=== PATIENT | female | born 1945 | race Caucasian/White ===

== ENCOUNTER → 2016-10-05 | Outpatient (CLI) | payer OTHER ==
[~2016-10-05] VITALS: Ht 149.9 cm; Wt 112.4 kg
[~2016-10-05] MED LIST: ADULT LOW DOSE81 MG PO; ALEVE220 M1 PO; AMOXICILLIN 50500 MG; APAP500 PO; BENICAR40 MG PO; BUSPIRONE HCL10 MG PO; BUTRANS1 EAC1 TD; BUTRANS1 EACH TD; CALCIUM 500+D1 EAC2 PO; CELEBREX 200 M200 MG PO; CYMBALTA60 MG PO; FELODIPINE 5 MG5 M1 PO; GLUCOPHAGE1000 MG PO; GLUCOPHAGE500 MG PO; GLYBURIDE 2.52.5 M1 PO; HYDROCHLOROTHIA25 M1 PO; KETOPROFEN; LEXAPRO 10 MG T10 M1 PO; LEXAPRO20 MG PO; MINOCIN100 MG PO; MINOCYCLINE HC100 M2 PO; MIRALAX17 GM PO; MULTIVITAMINS PO; MURO-128 OPHTH3.5 G1 OPHTHALMIC; MYRBETRIQ50 MG PO; NYSTATIN TOP; ONDANSETRON HCL4 M2 PO; PRILOSEC 20 MG20 MG PO; REFRESH OPTIVE10 ML OPHTHALMIC; SENNA-DOCUSATE1 EAC1 PO; TOPICAL CREAM; TRAMADOL 50 MG50 MG PO; VESICARE 5 MG TA5 MG PO; VITAMIN D3 PO; VITAMINC500 PO; ZOCOR40 MG PO; ZOLOFT100 MG PO
--- NOTE | ~2016-10-05 | HPC ---
[facility] [place] [address] PAIN MANAGEMENT CONSULTATION Name: PHILIPP MOCTEZUMA Room #: REG XIMENA Srinath.#: [id number] Admission: 10/05/16 Attend Phys: Fernando Barker MD Discharge: Date of : 49 Report #: [id number] THIS REPORT FOR: //name// CC: Gina Barker DATE OF SERVICE: 10/05/2016 Followup visit for chronic knee pain. The patient returns to pain clinic today for renewal of medication under terms of our agreement. She says her knee pain is worsening, she scores it as a 7 with all weightbearing activities and walking. Pain began just above the knee and involves the thigh, the knee joint and into the calf. She is morbidly obese and all weightbearing definitely increases pain. Pain is exacerbated by walking and weather changes. She is grateful for the medication, which provides quite a bit of relief. She is under more stress. This is not the first time she has come to our clinic describing familial family problems, rather her daughter apparently has MS and is having changes with cognitive issues. We went into long discussion today about the stressful situations occurring around her grandchildren and her daughter, this clearly effects her mood, her mobility, her ability to get out and her chronic pain. I offered support and prays. PHYSICAL EXAMINATION: She is morbidly obese with a BMI of 50. Her blood pressure is 149/60, heart rate 67. Her pain score today is a 7 when she stands, at rest it is not too bad. She is in short pants today and she also is on sandals. Examination of the knee reveals diffuse tenderness above and below the joint itself where she has a fair amount of swelling and tenderness. Crepitus is noted with movements and flexion and extension. IMPRESSION: 1. Severe chronic osteoarthritis, status post knee replacement on the left. Bilateral knee pain. 2. Morbid obesity. 3. History of depression, anxiety. 4. Management of high risk medication. 5. Probable complex regional pain syndrome, left lower extremity. PLAN: With chronic pain, I will provide ongoing palliative medications with Butrans 10 mg every 7 days and Celebrex 200 mg 1 tablet daily. All side effects of medication were reviewed with her once more and the importance of safeguarding even her patch medications and the CDC guidelines was reviewed. [address] [address] PAIN MANAGEMENT CONSULTATION Name: PHILIPP MOCTEZUMA Room #: REG [facility] Sudhir#: [id number] Admission: 10/05/16 Attend Phys: Fernando Barker MD Discharge: Date of : 49 Report #: [id number] Followup visit planned in 3 months. By: [id number] Fernando Barker MD /nt
[2016-10-05 13:02] VITALS: BP 149/60
== END ==
LOC: PAIN 07:33
DX: M17.0 Bilateral primary osteoarthritis of knee (principal); Z96.652 Presence of left artificial knee joint; E66.01 Morbid (severe) obesity due to excess calories; F41.8 Other specified anxiety disorders; G89.4 Chronic pain syndrome; I10 Essential (primary) hypertension; G47.30 Sleep apnea, unspecified

== ENCOUNTER → 2017-06-28 | Outpatient (CLI) | payer OTHER ==
[~2017-06-28] MED LIST changes: +FISH OIL 1,001000 M2 PO
--- NOTE | ~2017-06-28 | HPC ---
[facility] [address] [place] [address] PAIN MANAGEMENT CONSULTATION Name: PHILIPP MOCTEZUMA Room #: REG XIMENA Srinath.#: [id number] Admission: 06/28/17 Attend Phys: Fernando Barker MD Discharge: Date of : 49 Report #: [id number] THIS REPORT FOR: //name// CC: Gina Barker DATE OF SERVICE: 06/28/2017 Followup visit for severe pain, right knee osteoarthritis, depression and chronic stress. I saw the patient today from roughly 25-30 minutes in consultation. She was late for her appointment. It is difficult for her to get out of the house. She has a great deal of difficulty with mobility due to the severe pain in her right knee, which is terribly osteoarthritic. She is not a candidate for replacement. She is here today for medication and has had some relief with the use of buprenorphine patches and Celebrex with a few side effects. She sees a psychiatrist and also weekly counselor who have been helpful for her severe depression. Much of this is situational related to her disease and also to her worry and empathy for her daughter who has MS. She does not get out very much. She does have some gratitude and is grateful that she can still drive, but more and more she finds that life is depressing. We discussed that in the past she has felt suicidal, but no longer feels that way. She is trying to make her best through her current situation. Her pain is nearly all in her knee, although she has back pain and other aches and pains. It is worse with standing, weightbearing and she has to use a walker. She tries not to use a wheelchair. Pain intensity is 8 without the patch, 6 with it. Pain clinic assessment PQRS: She does have a history of osteoarthritis of the knees. She is morbidly obese. Her BMI is in excess of 45. Weight loss is challenging due to her inability to be mobile. We have discussed wellness behaviors and she was given information on [facility]. Vital signs are blood pressure 163/63, heart rate 65, respirations 16, O2 sat is 97%. Marked swelling, deformity with decreased range of motion is noted in the right knee. She is a fall risk due to her use of a walker, but is gratefully not following in the last 3 months. She is on no blood thinners. She is under treatment for hypertension and is on an opioid signed contract. A risk tool has been performed as well as functional assessment tool. She is at low risk for addiction, but she is at some risk of medication abuse due to her depression. I felt that was one reason, a patch would be beneficial. IMPRESSION: 1. Chronic intractable right knee pain with severe osteoarthritis. 2. Complex regional pain syndrome, left lower extremity. 3. Depression and anxiety with improvement. [facility] [address] [place] [address] PAIN MANAGEMENT CONSULTATION Name: PHILIPP MOCTEZUMA Room #: REG CLEvelia Peguero#: [id number] Admission: 06/28/17 Attend Phys: Fernando Barker MD Discharge: Date of : 49 Report #: [id number] 4. Morbid obesity. 5. Management of high risk medication. I have renewed her medication. She was counseled and given information on [facility] as well as some literature from our office about managing pain. Intent is for her to try and get out of the house at least once a week. She will practice the skills of gratitude discussed in the book, [facility] Guide to Stress-Free Living. We will be available to provide support where we can. <ELECTRONICALLY SIGNED> By: Fernando Barker MD 07/28/17 1640 [id number] [id number] Fernando Barker MD /nt
[2017-06-28 15:15] VITALS: BP 166/63
== END ==
LOC: PAIN 07:08
DX: M17.11 Unilateral primary osteoarthritis, right knee (principal); G90.522 Complex regional pain syndrome I of left lower limb; F32.9 Major depressive disorder, single episode, unspecified; F41.9 Anxiety disorder, unspecified; E66.01 Morbid (severe) obesity due to excess calories; Z79.899 Other long term (current) drug therapy; Z68.42 Body mass index [BMI] 45.0-49.9, adult

== ENCOUNTER → 2017-09-02 | Outpatient (CLI) | payer OTHER ==
[~2017-09-02] VITALS: Ht 152.4 cm; Wt 111.1 kg
--- NOTE | ~2017-09-02 | HPC ---
[facility] [place] [address] PAIN MANAGEMENT CONSULTATION Name: PHILIPP MOCTEZUMA Room #: REG XIMENA Srinath.#: [id number] Admission: 09/02/17 Attend Phys: Fernando Barker MD Discharge: Date of : 49 Report #: [id number] THIS REPORT FOR: //name// CC: Gina Barker DATE OF SERVICE: 09/02/2017 Followup visit for chronic severe pain, osteoarthritis and depression. The patient returns to pain clinic today for renewal of her chronic pain medication. She was here for a short consultation and I renewed her Butrans 10 patches for 3 months as well as Celebrex 200. Although emotionally I think she is more stable and I have seen her in the past with less anger, frustration, and depression, she is sad about her daughter who is declining rapidly with multiple sclerosis living in an apartment now having lost her family and her job. This is her most pressing concern at this time. She focuses more on her daughter today than she does on her physical pain. Her right knee is as described previously severely arthritic, swollen with marked effusion. She is unable to receive surgical treatment for this. She has had pain in the leg consistent with complex regional pain syndrome, which I think is much improved following the injection treatments and ongoing medication. No additional changes are required at this time. Pain clinic PQRS assessment shows history of osteoarthritis, bilaterally of the knees, morbid obesity. BMI again today over 45. VITAL SIGNS: Blood pressure of 143/67, heart rate 61, respirations 18, O2 sats 99. Pain intensity 8-9/10. She has not fallen in the last 3 months, but would be considered a fall risk due to her severe arthritis and she uses a walker. She has an opioid agreement signed for the use of her Butrans patches. IMPRESSION: 1. Chronic right knee pain with osteoarthritis. 2. Complex regional pain syndrome, left lower extremity. 3. History of depression and anxiety. 4. Morbid obesity. 5. Management of high risk medication. [facility] [address] [place] [address] PAIN MANAGEMENT CONSULTATION Name: PHILIPP MOCTEZUMA Room #: REG [facility]#: [id number] Admission: 09/02/17 Attend Phys: Fernando Barker MD Discharge: Date of : 49 Report #: [id number] PLAN: I renewed her medications today under terms of our agreement. We will see her back in 3 months. <ELECTRONICALLY SIGNED> By: Fernando Barker MD 09/06/17 1408 1653 57 Fernando Barker MD /nt
[2017-09-02 13:21] VITALS: BP 143/67
== END ==
LOC: PAIN 06:16
DX: M17.11 Unilateral primary osteoarthritis, right knee (principal); G90.522 Complex regional pain syndrome I of left lower limb; F32.9 Major depressive disorder, single episode, unspecified; F41.9 Anxiety disorder, unspecified; E66.01 Morbid (severe) obesity due to excess calories; Z79.899 Other long term (current) drug therapy; Z68.42 Body mass index [BMI] 45.0-49.9, adult

== ENCOUNTER → 2018-01-17 | Outpatient (CLI) | payer OTHER ==
[~2018-01-17] VITALS: Ht 152.4 cm; Wt 104.0 kg
--- NOTE | ~2018-01-17 | HPC ---
[facility] [place] [address] PAIN MANAGEMENT CONSULTATION Name: PHILIPP MOCTEZUMA Room #: REG XIMENA MelgarElisabethNoel.#: [id number] Admission: 01/17/18 Attend Phys: Fernando Barker MD Discharge: Date of : 49 Report #: [id number] THIS REPORT FOR: //name// CC: Gina Barker DATE OF SERVICE: 01/17/2018 Followup visit for chronic left leg pain. Consideration of complex regional pain syndrome. The patient returns to pain clinic today for renewal of pain medication. She has been doing pretty well with Butrans patches and receiving about 50% pain relief. She has resigned a bit to her condition, although she is very limited due to the significant pain that she has in her left knee, thigh and hip. This has been more extensive. She has marked swelling of that leg, but no allodynia. She does have some trophic changes with difference in growth of hair and nails. This has suggested a possible complex regional pain syndrome. PQRS review demonstrates pleasant female today. She does not appear anxious. She is 5 feet tall with a BMI of 44.8. Her blood pressure 149/65, heart rate is 58, respirations 18 and O2 sat 97. She has a pain intensity of 6 with walking and she has a significant fall risk. She has not recently fallen and is careful in her movements. All of her medications were reviewed and reconciled. I provided for her the buprenorphine. She is on an antidepressant and anti- anxiolytic, which have been helpful for a history of chronic depression related to chronic pain. Physical exam continuation demonstrates tenderness across the low back. She has difficulty with standing. She walks with marked discomfort and antalgic features. Examination of the left leg reveals diffuse swelling throughout the leg. No allodynia. There is swelling of a marked degree around her left knee where she has had complications from knee replacement and revision. She has limited movement of the foot. Pulses are difficult to palpate. IMPRESSION: 1. Chronic right knee pain with osteoarthritis. 2. Complex regional pain syndrome, left lower extremity. 3. History of depression and anxiety. 4. Morbid obesity. 5. Management of high risk medications. I renewed her medications for her and provided with information about spinal [address] [address] PAIN MANAGEMENT CONSULTATION Name: PHILIPP MOCTEZUMA [facility] [id number] Admission: 01/17/18 Attend Phys: Fernando Barker MD Discharge: Date of : 49 Report #: [id number] cord stimulation. She may be a reasonable candidate for this going forward. I described to her in some detail. I spent about 25 minutes with her today to discuss these options and answer questions. We did check her prescriptions with the [place] [employer], [facility] program and everything is appropriate. She was given prescriptions for 4 months and I will pursue spinal cord stimulator with her discretion. She was given written literature. By: [id number] Fernando Barker MD /kelvin
[2018-01-17 15:10] VITALS: BP 149/65
== END ==
LOC: PAIN 07:01
DX: G90.522 Complex regional pain syndrome I of left lower limb (principal); M17.11 Unilateral primary osteoarthritis, right knee; E66.01 Morbid (severe) obesity due to excess calories; F41.9 Anxiety disorder, unspecified; F32.9 Major depressive disorder, single episode, unspecified; Z79.899 Other long term (current) drug therapy

== ENCOUNTER → 2018-04-14 | Outpatient (CLI) | payer OTHER ==
[~2018-04-14] VITALS: Ht 152.4 cm; Wt 102.5 kg
--- NOTE | ~2018-04-14 | HPC ---
[facility] [place] [address] PAIN MANAGEMENT CONSULTATION Name: PHILIPP MOCTEZUMA Room #: [facility] [id number] Admission: 04/14/18 Attend Phys: Kym De La Torre Discharge: Date of : 49 Report #: [id number] THIS REPORT FOR: //name// CC: Gina De La Torre DATE OF SERVICE: 04/14/2018 REASON FOR THE VISIT: This is a followup visit for her chronic left leg pain, left knee pain. HISTORY OF PRESENT ILLNESS: The patient returned to the pain clinic today for a refill of her pain medications for her Butrans patch. She tells me that she had been doing fairly well until about last week, when the weather changed significantly. She said she has pain of 8/10 in her left knee, left thigh, left hip, and occasionally some in her right knee in the past week. She says the weather changes have made it worse walking, activity, standing and stairs. She is in a wheelchair today and states that she can barely walk and her is not very helpful with helping her move very much. She tells me that she has been taking Tylenol 1000 mg twice a day and was wondering about an increase of this. She tells me she does not want an increase in her narcotics because she does not want to get confused by taking too much medicine. She tells me she does have some daytime sleepiness that feels that some of her depression. She does take an antidepressant on a daily basis. She tells me that she could sleep 15 hours a day, but she does only sleep 9 hours and gets up and tries to be as active as she can. She tells me that her constipation is taken care of with Senokot. ALLERGIES: TO MORPHINE, CODEINE, FENTANYL AND PROCAINE. MEDICATIONS: Current list of medications: Celebrex 200 mg daily, Butrans patch 10 mcg, Lexapro 40 mg daily, buspirone 10 mg twice a day, vitamin D3, Senokot, metformin 500 mg one in the morning and two at night, minocycline 100 mg daily, glyburide 2.5 mg daily, Tylenol Extra Strength 1000 mg twice a day, aspirin 81 mg, multivitamin, Plendil ER 500 mg at bedtime, Zocor 40 mg at bedtime, Benicar 40 mg at bedtime and Prilosec 20 mg daily. PQRS: 1. She has a history of osteoarthritis in her knees, lower back, thigh and hips. She denies rheumatoid arthritis. 2. Height is 5 feet, weight is 226 and BMI is 44. Vital signs 150/71, pulse 64, respirations 16 and oxygen saturation is 98%. 3. Her pain score is 8/10. 4. Fall risk. She denies dizziness, does need help walking and standing and has not fallen in the last [address] [address] PAIN MANAGEMENT CONSULTATION Name: PHILIPP MOCTEZUMA Room #: REG XIMENA Peguero#: [id number] Admission: 04/14/18 Attend Phys: Kym De La Torre Discharge: Date of : 49 Report #: [id number] 5. She has no blood thinners. 6. History of hypertension. Opioid therapy is greater than 6 weeks; therefore, an opioid signed contract is not on the chart, but we will sign that next time. It will be placed on there for her to fill up. Her risk assessment is low. Her functional assessment is 57 out of 70. 7. Her recreational drug use, she denies. She does not smoke and does not drink alcohol. We did check a [place] drug prescription monitoring program and she has filled her Butrans appropriately, with no aberrant behaviors. The patient tells me she safeguards her medications, keeps them locked very securely. PHYSICAL EXAMINATION: GENERAL: This is a well-developed, well-nourished, obese woman who appears her stated age. She is alert and orientated x 3. Affect is appropriate, though she tells me she is somewhat depressed. HEENT: Normocephalic, atraumatic. Extraocular muscles are intact. Mucous membranes are moist. Hearing is intact. NECK: No JVD or adenopathy. EXTREMITIES: Lower extremities, pain in her lower extremities, especially right knee very arthritic, swollen with marked effusion present. Decreased motor strength in the left, 3/2 in all muscle groups and 4/5 on her right leg in all muscle groups. The patient able to straight leg both legs bilaterally with some difficulty. DIAGNOSTIC IMPRESSION: Chronic bilateral knee pain with osteoarthritis; complex regional pain syndrome, left lower extremity; history of depression and anxiety; morbid obesity and management of high-risk medications. We reviewed the fact that opiate medications are being used to provide analgesia adequate to support activities of daily living, not attempting to achieve a specific pain score on the 0-10 Visual Analog Scale. The current opiate medications are providing sufficient analgesia to allow the patient to participate in activities of daily living. The patient is not exhibiting any aberrant behavior suggestive of drug diversion. The patient is not having any adverse reactions to medications. The patient is not suffering from daytime somnolence or mental acuity changes. The patient is managing opiate-induced constipation with appropriate [id number]-[id number] agents and dietary considerations. The patient was counseled on concern for caution with operating a motor vehicle while using opiate medications. A physical exam was performed and the patient's functional status was evaluated. All patients with back pain were advised against the bed rest greater than 4 days and were advised to return to normal activities. Pain score assessment was noted and the treatment plan was reviewed with the patient. All current medications, both prescribed and OTC were reviewed and reconciled on the [address] [address] PAIN MANAGEMENT CONSULTATION Name: PHILIPP MOCTEZUMA Room #: REG CLEvelia Peguero#: [id number] Admission: 04/14/18 Attend Phys: Kym De La Torre Discharge: Date of : 49 Report #: [id number] electronic medical record. Tobacco screening was accomplished and smoking cessation was advised when indicated. BMI was noted and diet/exercise modification was recommended for all patients following outside normal parameters. I reviewed with the patient today their responsibilities to safeguard prescription medications, reviewed their responsibility to utilize medications only as prescribed by the physician. They are to seek and receive pain medications only from 1 physician group ( [facility]). They are to use 1 pharmacy and keep the clinic informed if they change pharmacies. Their responsibilities include making followup visits in a timely fashion and to avoid abrupt discontinuation of medication usage. Their responsibilities further include bringing their medications (bottles from the pharmacy with residual pills) to the visit for possible confirmation of pill counts and the patient understands it is their responsibility to submit to random drug screens to ensure both that the medications prescribed are present, and that no other controlled substances are present. All prescriptions provided today were generated electronically. PLAN: 1. The patient is seen today for followup of her medications and here for renewal for her chronic pain medications of Butrans. She takes Butrans 10 mcg patches 1 patch every week and Celebrex 200 mg once a day. The patient does mail off these prescriptions to [facility] and is requesting them be faxed there. 2. We will refill these medications today. The patient does not need them until mid April, but it does take a while to get process through a mail-off pharmacy. 3. The patient discussed the fact that she was having increase in pain since the weather has changed. We did talk slightly about the CDC guidelines and morphine milliequivalents. The patient does not want to increase her narcotic use at this time, but was wondering if it is possible that she could take Tylenol Extra Strength 1000 mg 3 times a day. I instructed the patient that it was okay to do. I would not recommend doing it on a daily basis if she can get by with the lowest most effective dose, which she tells me is 2000 mg that she will do that and then days that she is hurting more so she will take an additional 2 pills in the middle of the afternoon. The patient thinks that this will help her function better. 4. The patient will be seen again in 3-month time frame myself and after that by Dr. Fernando Barker. The patient is agreeable with this plan of care. 5. The patient seen in collaboration today with Dr. Barker. <ELECTRONICALLY SIGNED> By: Kym De La Torre 04/15/18 0717 1520 [id number] Kym De La Torre /kelvin
[2018-04-14 14:24] VITALS: BP 150/71
== END ==
LOC: PAIN 06:54
DX: M25.562 Pain in left knee (principal); M25.552 Pain in left hip; M79.652 Pain in left thigh; M54.5 Low back pain; M25.551 Pain in right hip

== ENCOUNTER 2018-05-06 14:10 | Emergency (ER) | payer OTHER ==
[~2018-05-06] VITALS: Ht 152.4 cm; Wt 108.9 kg
[2018-05-06 15:47] VITALS: BP 174/76
== END 2018-05-06 15:48 | disposition home or self-care (01) ==
LOC: ER 14:10
DX: M79.605 Pain in left leg (principal); G89.29 Other chronic pain; E11.9 Type 2 diabetes mellitus without complications; M19.90 Unspecified osteoarthritis, unspecified site; I10 Essential (primary) hypertension; F32.9 Major depressive disorder, single episode, unspecified; E78.00 Pure hypercholesterolemia, unspecified; Z88.4 Allergy status to anesthetic agent; Z88.5 Allergy status to narcotic agent; Z96.653 Presence of artificial knee joint, bilateral

== ENCOUNTER → 2018-07-28 | Outpatient (CLI) | payer OTHER ==
--- NOTE | 2018-07-27 11:10 | NUR ---
4Pain Clinic Assessment: 1. History of Osteoarthritis: yes History of Rheumatoid Arthritis: Not Applicable 2. Height: ft. in. cm. Weight: lb. oz. kg. Patient's BMI: 3. Vital Signs: BP: Pulse: Resp: Temp: 02 Sat: ECG Mon: 4. Pain Intensity: 8 5. Fall Risk: Dizziness: Needs help standing or walking: Fallen in the last 3 months: Fall risk comments: 6. Patient on Blood Thinner: None 7. History of Hypertension: Y 8. Opioid Therapy greater than 6 weeks: Y Opiate Contract Signed: 9. Risk Assessment Tool Provided: LOW 10. Functional Assessment Tool: 57/70 11. Recreational Drug Use: Never Drug Type: Tobacco Use: Never Smoker Tobacco Type: Amount or Packs/day: How Many Years: Alcohol Use: No Frequency: Quant:
[~2018-07-28] VITALS: Ht 152.4 cm; Wt 115.6 kg
--- NOTE | ~2018-07-28 | HPC ---
[facility] [place] [address] PAIN MANAGEMENT CONSULTATION Name: PHILIPP MOCTEZUMA [facility] [id number] Admission: 07/28/18 ������������������ Attend Phys: Kym De La Torre Discharge: ������������������ Date of : 49 Report #: [id number] THIS REPORT FOR: //name// CC: Gina De La Torre DATE OF SERVICE: 07/28/2018 CHIEF COMPLAINT: Chronic left leg and knee pain. HISTORY OF PRESENT ILLNESS: The patient returns to pain clinic today for refill of her Butrans patch that she uses to control her left leg pain. She tells me that her knee has been very bad lately causing her increased pain that has been radiating from her knee up towards her hip. She tells me her pain score today is 8/10. It is a sharp, achy, throbbing pain, worse with the weather changing, walking and activity. She is in a wheelchair today. The medications are helpful, but sometimes she does have increasing pain. She continues on her Butrans and her Celebrex. She tells me that she did go to the Emergency Room. Since we have seen her last, she was very depressed and her pain had been getting worse. She did not receive any prescriptions from them for pain medications. ALLERGIES: MORPHINE, CODEINE, FENTANYL, AND NOVOCAIN. MEDICATIONS: Butrans patch 10 mcg every week, Lexapro 40 mg daily, buspirone 10 mg b.i.d., vitamin D3 daily, Senokot as needed, metformin 500 mg in the morning and 1000 at night, minocycline 100 mg daily, glyburide 2.5 mg daily, extra strength Tylenol as needed, aspirin 81 mg daily, multivitamin daily, Plendil ER 5 mg at bedtime, Celebrex 200 mg daily, Zocor 40 mg at bedtime, Benicar 40 mg at bedtime, Prilosec 40 mg daily. PQRS: 1. The patient has a history of osteoarthritis in her knees, lower back and hips. Denies rheumatoid arthritis. 2. Height is 5 feet, weight is 254, BMI is 49. 3. Vital signs: 153/57, pulse is 60, respirations 16, oxygen sat is 97%. 4. Pain score is 8/10. 5. Fall risk: Denies dizziness. She is in a wheelchair today and does need help walking. Otherwise, she has not fallen in the last 3 months. 6. The patient is not on any blood thinner. She does take medicine for hypertension. 7. Opioid therapy is greater than 6 weeks. Therefore, no opioid signed contract is on the chart. The patient's assessment tool is low. Her functional assessment is 57/70. 8. Recreational drug use, she denies. She is not a smoker and does not drink alcohol. We did check the prescription monitoring system[place] [id number] PAIN MANAGEMENT CONSULTATION Name: PHILIPP MOCTEZUMA Room #: REG XIMENA Peguero#: [id number] Admission: 07/28/18 ������������������ Attend Phys: Kym De La Torre Discharge: ������������������ Date of : 49 Report #: [id number] mail-off and does not show up on the prescription monitoring, but she is due for her meds today filling them in a timely fashion per our chart notes. We will check a buccal drug screen on this patient in her next visit. PHYSICAL EXAMINATION: GENERAL: This is a well-developed, well-nourished, obese woman, who appears her stated age. She is alert and orientated. Her affect is appropriate, though she had been in the Emergency Room recently due to increase in depression. HEENT: Normocephalic, atraumatic. Extraocular eye muscles are intact. Mucous membranes are moist. Hearing is intact. EXTREMITIES: Lower extremity strength is 4/5, judged to be in muscle groups. She does have swelling noted in her right knee, is very arthritic. She has decreased range of motion in her left leg. The patient is able to straight leg raise both legs bilaterally with difficulty, especially on the left. She walks with an antalgic gait. IMPRESSION: 1. Chronic bilateral knee pain with osteoarthritis. 2. Complex regional pain syndrome, left lower extremity. 3. Depression and anxiety. 4. Morbid obesity. 5. Management of high risk opioid medications. We reviewed the fact that opiate medications are being used to provide analgesia adequate to support activities of daily living, not attempting to achieve a specific pain score on the 0-10 Visual Analog Scale. The current opiate medications are providing sufficient analgesia to allow the patient to participate in activities of daily living. The patient is not exhibiting any aberrant behavior suggestive of drug diversion. The patient is not having any adverse reactions to medications. The patient is not suffering from daytime somnolence or mental acuity changes. The patient is managing opiate-induced constipation with appropriate lxyo-nke-upoewau agents and dietary considerations. The patient was counseled on concern for caution with operating a motor vehicle while using opiate medications. A physical exam was performed and the patient's functional status was evaluated. All patients with back pain were advised against the bed rest greater than 4 days and were advised to return to normal activities. Pain score assessment was noted and the treatment plan was reviewed with the patient. All current medications, both prescribed and OTC were reviewed and reconciled on the electronic medical record. Tobacco screening was accomplished and smoking cessation was advised when indicated. BMI was noted and diet/exercise modification was recommended for all patients following outside normal parameters. I reviewed with the patient today their responsibilities to [facility] [address] [place] [address] PAIN MANAGEMENT CONSULTATION Name: PHILIPP MOCTEZUMA Room #: REG Evelia Yo.#: [id number] Admission: 07/28/18 ������������������ Attend Phys: Kym De La Torre Discharge: ������������������ Date of : 49 Report #: [id number] prescription medications, reviewed their responsibility to utilize medications only as prescribed by the physician. They are to seek and receive pain medications only from 1 physician group ( [facility]). They are to use 1 pharmacy and keep the clinic informed if they change pharmacies. Their responsibilities include making followup visits in a timely fashion and to avoid abrupt discontinuation of medication usage. Their responsibilities further include bringing their medications (bottles from the pharmacy with residual pills) to the visit for possible confirmation of pill counts and the patient understands it is their responsibility to submit to random drug screens to ensure both that the medications prescribed are present, and that no other controlled substances are present. All prescriptions provided today were generated electronically. PLAN: 1. We discussed treatment options with the patient today. The patient tells me that she has had generally overall increasing aches and pains. She thinks this may be from the weather, but she has not been feeling as good in the past few months, wondering if she could double her some Celebrex. I explained to her that she is at the dose that is recommended per day. Occasionally, she may take an extra Celebrex, but no more than 2 times in the month if she able to do this. Otherwise, she needs to keep her Celebrex dose as she is at 200 mg per daily. No scripts needed to give to this patient today since she has plenty for her mail-off. Encouraged the patient to use Tylenol if she needs to for increase in pain. 2. Scripts given for Butrans 10 mcg patch, quantity 12 that we will fax to [facility] for refill. The patient tells me she does need to fill locally because she only has one patch left. Script was called in for 4 patches to the local pharmacy. I did encourage the patient that we cannot continue to give her 4 months every time that she comes. She needs to make her appointments in a timely fashion and I encouraged her to call for an appointment when she has one box of medications left and have an appointment within [address] will be able to get her prescriptions mailed from the mail-off pharmacy within a 2-month time period and we will be giving her 3 months of medications. The patient agrees with this. She will try to make note of when she has one box of medications left. 3. On next visit, we will check a fecal drug screen. Dr. Barker did see the patient today and collaborated with care. ��������������������������������������������� ���������������������������������������� By: ��������������������������������������������� [id number] Kym De La Torre /kelvin
[2018-07-28 09:54] VITALS: BP 153/57
--- NOTE | 2018-07-28 10:00 | NUR ---
Pain Clinic Assessment: 1. History of Osteoarthritis: yes History of Rheumatoid Arthritis: Not Applicable 2. Height: 5 ft. 0 in. 152.4 cm. Weight: 254.8 lb. oz. 115.577 kg. Patient's BMI: 49.8 3. Vital Signs: BP: 153/57 Pulse: 60 Resp: 16 Temp: 02 Sat: 97 ECG Mon: 4. Pain Intensity: 8 5. Fall Risk: Dizziness: N Needs help standing or walking: Y Fallen in the last 3 months: N Fall risk comments: 6. Patient on Blood Thinner: None 7. History of Hypertension: Y 8. Opioid Therapy greater than 6 weeks: Y Opiate Contract Signed: 9. Risk Assessment Tool Provided: LOW 10. Functional Assessment Tool: 11. Recreational Drug Use: Never Drug Type: Tobacco Use: Never Smoker Tobacco Type: Amount or Packs/day: How Many Years: Alcohol Use: No Frequency: Quant:
== END ==
LOC: PAIN 07:04
DX: M17.0 Bilateral primary osteoarthritis of knee (principal); G90.522 Complex regional pain syndrome I of left lower limb; F41.9 Anxiety disorder, unspecified; F32.9 Major depressive disorder, single episode, unspecified; E66.01 Morbid (severe) obesity due to excess calories; Z79.891 Long term (current) use of opiate analgesic; Z79.899 Other long term (current) drug therapy; Z68.42 Body mass index [BMI] 45.0-49.9, adult

== ENCOUNTER → 2018-11-10 | Outpatient (CLI) | payer OTHER ==
[~2018-11-10] VITALS: Ht 152.4 cm; Wt 113.4 kg
[~2018-11-10] MED LIST changes: +BUTRANS1 EAC1 TOP
[2018-11-10 13:30] VITALS: BP 129/56
--- NOTE | 2018-11-10 13:40 | NUR ---
Pain Clinic Assessment: 1. History of Osteoarthritis: yes History of Rheumatoid Arthritis: Not Applicable 2. Height: 5 ft. 0 in. 152.4 cm. Weight: 250.0 lb. oz. 113.400 kg. Patient's BMI: 48.8 3. Vital Signs: BP: 129/56 Pulse: 58 Resp: 16 Temp: 02 Sat: 99 ECG Mon: 4. Pain Intensity: 8 with walking 5. Fall Risk: Dizziness: N Needs help standing or walking: Y Fallen in the last 3 months: N Fall risk comments: 6. Patient on Blood Thinner: None 7. History of Hypertension: Y 8. Opioid Therapy greater than 6 weeks: Y Opiate Contract Signed: 9. Risk Assessment Tool Provided: LOW 10. Functional Assessment Tool: 57/ 11. Recreational Drug Use: Never Drug Type: Tobacco Use: Never Smoker Tobacco Type: Amount or Packs/day: How Many Years: Alcohol Use: No Frequency: Quant:
--- NOTE | 2018-11-11 11:32 | HPC ---
[facility] [address] [place] [address] PAIN MANAGEMENT CONSULTATION Name: PHILIPP MOCTEZUMA [facility] [id number] Admission: 11/10/18 ������������������ Attend Phys: Kym De La Torre Discharge: ������������������ Date of : 47 Report #: [id number] THIS REPORT FOR: //name// CC: Gina De La Torre DATE OF SERVICE: 11/10/2018 CHIEF COMPLAINT: Chronic knee pain. HISTORY OF PRESENT ILLNESS: This is a very pleasant 73-year-old female who returns to the pain clinic today telling me that she does not feel that her pain is well controlled as it used to be, wondering if she has any other options, whether it be increase in her Butrans patch, rotating to another medication or she did bring several alternatives for injections that she had researched with her sister regarding genicular nerve blocks and radiofrequency of her knee as well as a spinal cord stimulator that Dr. Fernando Barker has talked to her about before. The patient tells me that her pain score is 8/10 today with any walking or any activity including standing and stairs. Her medication does help some just not as much as it used to. She manages her constipation with medications and does not feel overly medicated with her medicines. ALLERGIES: MORPHINE, CODEINE, FENTANYL AND NOVOCAIN. CURRENT MEDICATION LIST: Buprenorphine 10 mcg patch, Celebrex 200 mg, Lexapro 40 mg, buspirone 10 mg b.i.d., vitamin D3, Senokot, metformin 500 mg b.i.d., minocycline 100 mg daily, glyburide 2.5 mg daily, Tylenol Extra Strength, aspirin, multivitamin, Plendil 5 mg at bedtime, Zocor 40 mg at bedtime, Benicar 40 mg at bedtime, Prilosec 20 mg daily. PQRS: 1. She has a history of osteoarthritis in her knees and her hips and her lower back. Denies any rheumatoid arthritis. 2. Height is 5 feet, weight is 250, and BMI is 48. 3. VITAL SIGNS: Blood pressure 129/56, pulse is 58, respirations 16, oxygen sat is 99. 4. Pain score is 8/10. 5. Fall risk. Denies dizziness. She does need help walking and she is in a wheelchair today and has not fallen in the last 3 months. 6. The patient is not on any blood thinners, does take medicine for hypertension. 7. Opioid therapy is greater than 6 weeks; therefore, an opioid signed contract is on the chart. Her risk assessment tool is low. Functional assessment is 57/70. 8. Recreational drug use, she denies. She is not a smoker and does not drink alcohol. [address] [address] PAIN MANAGEMENT CONSULTATION Name: PHILIPP MOCTEZUMA Room #: REG CLI Sudhir#: [id number] Admission: 11/10/18 ������������������ Attend Phys: Kym De La Torre Discharge: ������������������ Date of : 49 Report #: [id number] We did check the prescription monitoring system. The patient is due for her mail-off prescription. She keeps her medicines locked up and safeguarded. PHYSICAL EXAMINATION: GENERAL: This is a well-developed, well-nourished, obese female who appears her stated age. She is alert and orientated. Her affect is appropriate. HEENT: Normocephalic, atraumatic. Extraocular eye muscles are intact. Mucous membranes are moist. EXTREMITIES: Lower extremity strength judged to be 4/5 in all major muscle groups. She has significant swelling in her right knee, which is very arthritic with a well-healed scar. Her left knee is very swollen with tenderness around the patella. She is able to move her leg with active range of motion, but is very painful. She walks with an antalgic gait. IMPRESSION: 1. Chronic bilateral knee pain with osteoarthritis. 2. Complex regional pain syndrome, left lower extremity. 3. Depression and anxiety. 4. Morbid obesity. 5. Management of high risk medications under terms of written opioid agreement. We reviewed the fact that opiate medications are being used to provide analgesia adequate to support activities of daily living, not attempting to achieve a specific pain score on the 0-10 Visual Analog Scale. The current opiate medications are providing sufficient analgesia to allow the patient to participate in activities of daily living. The patient is not exhibiting any aberrant behavior suggestive of drug diversion. The patient is not having any adverse reactions to medications. The patient is not suffering from daytime somnolence or mental acuity changes. The patient is managing opiate-induced constipation with appropriate yyth-zfo-ogktauv agents and dietary considerations. The patient was counseled on concern for caution with operating a motor vehicle while using opiate medications. A physical exam was performed and the patient's functional status was evaluated. All patients with back pain were advised against the bed rest greater than 4 days and were advised to return to normal activities. Pain score assessment was noted and the treatment plan was reviewed with the patient. All current medications, both prescribed and OTC were reviewed and reconciled on the electronic medical record. Tobacco screening was accomplished and smoking cessation was advised when indicated. BMI was noted and diet/exercise modification was recommended for all patients following outside normal parameters. I reviewed with the patient today their responsibilities to safeguard prescription medications, reviewed their responsibility to utilize medications [address] [address] PAIN MANAGEMENT CONSULTATION Name: PHILIPP MOCTEZUMA Room #: REG [facility].#: [id number] Admission: 11/10/18 ������������������ Attend Phys: Kym De La Torre Discharge: ������������������ Date of : 49 Report #: [id number] only as prescribed by the physician. They are to seek and receive pain medications only from 1 physician group ( [facility]). They are to use 1 pharmacy and keep the clinic informed if they change pharmacies. Their responsibilities include making followup visits in a timely fashion and to avoid abrupt discontinuation of medication usage. Their responsibilities further include bringing their medications (bottles from the pharmacy with residual pills) to the visit for possible confirmation of pill counts and the patient understands it is their responsibility to submit to random drug screens to ensure both that the medications prescribed are present, and that no other controlled substances are present. All prescriptions provided today were generated electronically. PLAN: 1. We discussed treatment options with the patient today. The patient has brought a brochure with her today about nerve blocks for her knee and radiofrequency burning of her knee. I explained to her that Dr. Barker does not do those procedures. His previous partner did, but he has since left the practice. Dr. Fernando Barker gave me some information on cool RF that he thinks might be beneficial for the patient that we are not aware of a specific doctor in [facility] that does this procedure. We instructed the patient to call the company and see or call various pain clinics in [facility] or orthopedic surgeons. She will make some phone calls and call us with the names with information she has discovered and to make sure that we think that doctor is appropriate for her. 2. We did discuss spinal cord stimulator, which Dr. Barker had discussed with her in the past. We talked about pros and cons and the actual procedure in a significant length of time. The patient at this point thinks she would like to try injections of her knee to decrease some of her pain. 3. We did talk about increasing Butrans patch up to 15 mcg. The patient tells me she had tried to do that in the past, but felt overmedicated and had significant issues. She thinks currently right now, she will stay at her 10. She is not interested in trying to take an oral pill. She feels like she takes enough oral medications that she likes using the patch for pain control. Script sent to [facility] for 3-month supply of her Butrans 10 mcg patch. 4. The patient does not need Celebrex at this time, though she continues to take that on a daily basis. 5. I discussed this case with Dr. Fernando Barker who collaborated care today. The patient will return in 3 months' time period and talk to us via phone calls for physician referrals. ��������������������������������������������� <ELECTRONICALLY SIGNED> ���������������������������������������� By: Kym De La Torre ��������������������������������������������� 11/11/18 [id number] Kym De La Torre /nt
== END ==
LOC: PAIN 06:51
DX: M17.0 Bilateral primary osteoarthritis of knee (principal); E66.01 Morbid (severe) obesity due to excess calories; F32.9 Major depressive disorder, single episode, unspecified; F41.9 Anxiety disorder, unspecified

== ENCOUNTER → 2019-01-12 | Outpatient (CLI) | payer OTHER ==
[~2019-01-12] VITALS: Ht 152.4 cm; Wt 112.0 kg
--- NOTE | ~2019-01-12 | HPC ---
[facility] [place] [address] [place] [address] PAIN MANAGEMENT CONSULTATION Name: PHILIPP MOCTEZUMA Room #: REG XIMENA Srinath.#: [id number] Admission: 01/12/19 Attend Phys: Fernando Barker MD Discharge: Date of : 49 Report #: [id number] THIS REPORT FOR: //name// CC: Gina Barker DATE OF SERVICE: 01/12/2019 Followup visit for chronic left knee pain. The patient returns to pain clinic for followup for medication management. I provide her with Butrans patches. She also received Celebrex which has been somewhat helpful in managing her pain. We had some discussion today about cooled radiofrequency. I think that she would be a difficult case due to the significant structural abnormalities that exist within her knee joint. PQRS REVIEW: 1. History of osteoarthritis, diffuse, particularly involving the knees. 2. BMI of 48.2. Counseling regarding weight loss. 3. Blood pressure 141/66, heart rate 57, respirations 16. 4. Pain intensity 8/10. 5. She is a fall risk but has not fallen in the last 3 months. She needs help standing and walking. 6. She is on no blood thinners. 7. History of hypertension, which is currently under treatment. All of her medications were reviewed and reconciled from the electronic medical record and are noted there. 8. She is on an opioid agreement and we reviewed the important aspects of that. She is grateful for the pain relief that her pain medications provide and improvement in her day-to-day activities. She denies significant side effects. She carefully safeguards all medication. 9. She is at low risk for addiction as scored by the opioid risk tool. 10. Functional assessment score is 57 suggesting high impact of her pain. 11. She denies use of tobacco and alcohol. PHYSICAL EXAMINATION: VITAL SIGNS: As noted. GENERAL: She is pleasant, alert and oriented, without signs of depression or anxiety. CHEST: Examination of the chest is clear. CARDIAC: Rhythm is regular. EXTREMITIES: Examination of the left leg reveals edematous lower extremity. Midline scar over the knee. Localized tenderness and significant restrictions in range of motion in flexion. There is tenderness along the lateral thigh and [facility] [address] [place] [address] PAIN MANAGEMENT CONSULTATION Name: PHILIPP MOCTEZUMA Room #: REG [facility].#: [id number] Admission: 01/12/19 Attend Phys: Fernando Barker MD Discharge: Date of : 49 Report #: [id number] also down into the calf. There is some discoloration and bruising. IMPRESSION: 1. Chronic intractable pain. 2. Severe osteoarthritis. 3. Complex regional pain syndrome, left lower extremity. 4. Depression and anxiety, improved. 5. Morbid obesity. 6. Management of opioid medications under terms of written opioid agreement. I renewed her Butrans 10 mg and Celebrex 200 mg for the next 3 months. Follow up as needed. By: [id number] MD daria Amado
[2019-01-12 11:51] VITALS: BP 141/66
--- NOTE | 2019-01-12 12:03 | NUR ---
Pain Clinic Assessment: 1. History of Osteoarthritis: yes History of Rheumatoid Arthritis: Not Applicable 2. Height: 5 ft. 0 in. 152.4 cm. Weight: 247.0 lb. oz. 112.039 kg. Patient's BMI: 48.2 3. Vital Signs: BP: 141/66 Pulse: 57 Resp: 16 Temp: 02 Sat: 97 ECG Mon: 4. Pain Intensity: 8 5. Fall Risk: Dizziness: N Needs help standing or walking: Y Fallen in the last 3 months: N Fall risk comments: 6. Patient on Blood Thinner: None 7. History of Hypertension: Y 8. Opioid Therapy greater than 6 weeks: Y Opiate Contract Signed: 9. Risk Assessment Tool Provided: LOW 10. Functional Assessment Tool: 11. Recreational Drug Use: Never Drug Type: Tobacco Use: Never Smoker Tobacco Type: Amount or Packs/day: How Many Years: Alcohol Use: No Frequency: Quant:
== END ==
LOC: PAIN 06:50
DX: M17.12 Unilateral primary osteoarthritis, left knee (principal); G90.522 Complex regional pain syndrome I of left lower limb; E66.01 Morbid (severe) obesity due to excess calories; F32.9 Major depressive disorder, single episode, unspecified; F41.9 Anxiety disorder, unspecified; Z79.891 Long term (current) use of opiate analgesic

== ENCOUNTER → 2019-05-15 | Outpatient (CLI) | payer OTHER ==
[~2019-05-15] VITALS: Ht 152.4 cm; Wt 111.1 kg
[~2019-05-15] MED LIST changes: +AUGMENTIN 500-1 EACH PO; +BUTRANS1 EAC1 TRANSDERM
[2019-05-15 12:44] VITALS: BP 130/47
--- NOTE | 2019-05-15 12:52 | NUR ---
Pain Clinic Assessment: 1. History of Osteoarthritis: yes History of Rheumatoid Arthritis: Not Applicable 2. Height: 5 ft. 0 in. 152.4 cm. Weight: 245.0 lb. oz. 111.132 kg. Patient's BMI: 47.8 3. Vital Signs: BP: 130/47 Pulse: 71 Resp: 20 Temp: 02 Sat: 95 ECG Mon: 4. Pain Intensity: 7-8 5. Fall Risk: Dizziness: N Needs help standing or walking: N Fallen in the last 3 months: N Fall risk comments: 6. Patient on Blood Thinner: None 7. History of Hypertension: Y 8. Opioid Therapy greater than 6 weeks: Y Opiate Contract Signed: 9. Risk Assessment Tool Provided: LOW 10. Functional Assessment Tool: 57/ 11. Recreational Drug Use: Never Drug Type: Tobacco Use: Never Smoker Tobacco Type: Amount or Packs/day: How Many Years: Alcohol Use: No Frequency: Quant:
--- NOTE | 2019-05-16 08:06 | HPC ---
[facility] [place] [address] PAIN MANAGEMENT CONSULTATION Name: PHILIPP MOCTEZUMA [id number] Admission: 05/15/19 Attend Phys: Kym De La Torre Discharge: Date of : 49 Report #: [id number] THIS REPORT FOR: //name// CC: Gina Barker MD DATE OF SERVICE: 05/15/2019 CHIEF COMPLAINT: Followup visit. Chronic left knee pain. 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 She also complains of some ongoing low back pain, but her biggest complaint today is right leg pain. She reports that she has had cellulitis in this leg for about 6 weeks. Her pain is an aching, throbbing soreness, rating her pain at 7-8. She reports that her pain started in her right foot with a sore, rubbing from a new shoe and then her pain did travel up to her knee. She has been on antibiotics for about 6 weeks. She is scheduled to see the Infectious Disease doctor on 05/25/2019 because her right leg cellulitis is not improving. The patient reports her pain score is 7-8 today, worse with walking and any activity as well as standing. She feels that she repositions herself and uses her medication. Her left knee pain is significantly better, but nothing is helping her right leg. She also reports that she has recently had a sinus infection and has an ongoing cough. She is seeing her primary care doctor for these issues. ALLERGIES: MORPHINE, CODEINE, FENTANYL, AND PROCAINE. CURRENT LIST OF MEDICATIONS: Augmentin, Celebrex, Butrans 10 mcg patch, Lexapro, buspirone, vitamin D, Senna, metformin, minocycline, glyburide, multivitamin, Plendil, Zocor, Benicar and omeprazole. PQRS: 1. She has diffuse osteoarthritis involving both her bilateral knees. She denies any rheumatoid arthritis. 2. Height is 5 feet, weight is 245, BMI is 47. 3. Vital signs 130/47, pulse is 71, respirations 20, oxygen sat is 95. 4. Pain score is 7-8. 5. Denies dizziness. Does need help walking. She is in a wheelchair presently today. She has not fallen in the last 3 months. 6. The patient is not on any blood thinners, but does take medicine for hypertension. Her opioid therapy is greater than 6 weeks; therefore, an opioid [address] [address] PAIN MANAGEMENT CONSULTATION Name: PHILIPP MOCTEZUMA Room #: REG CL M.Noel.#: [id number] Admission: 05/15/19 Attend Phys: Kym De La Torre Discharge: Date of : 49 Report #: [id number] signed contract is on the chart. Risk assessment tool is low. Functional assessment is 57/70. 7. Recreational drug use, she denies. She is not a smoker and does not drink alcohol. According to the prescription monitoring system, the patient is filling appropriately for her Butrans patch at a mail-off pharmacy. She does safeguard these meds at all times per her report. PHYSICAL EXAMINATION: GENERAL: This is alert and orientated 73-year-old female who appears slightly older than her stated age. She is without signs of depression or anxiety. HEENT: Normocephalic, atraumatic. Extraocular eye muscles are intact. She is congested today. LUNGS: Diminished to auscultation. She has a productive cough. EXTREMITIES: Examination of the left leg reveals edematous lower extremities with scarring over the midline of her knee. Her right leg from the knee downward is reddened and tender to the touch and does appear edematous as well. The patient has increased pain with flexion and extension of both knees and increased pain with standing. IMPRESSION: 1. Chronic intractable pain. 2. Severe osteoarthritis. 3. Morbid obesity. 4. Recent diagnosis of cellulitis. 5. Complex regional pain syndrome, left lower extremity. 6. Management of opioid medications under terms of written opioid agreement. PLAN: 1. We discussed treatment options with the patient today. The patient finds the medication helpful in reducing some of her left knee pain with minimal side effects such as constipation or daytime sleepiness. She would like a refill of her Butrans today. We will fax off Butrans 10 mcg patch to the [facility] where she fills her prescriptions. 2. I encouraged the patient to call the Infectious Disease doctor to see if they have any cancellations so she may try to get in sooner for an appointment than 05/25/2019. If they do not, I would also encourage her to call her primary care doctor since her cellulitis is not improving despite 3 rounds of antibiotic plus her primary care doctor can treat her ongoing sinus infection and cough. The patient verbalized understanding. She will call them after discharge. [address] [address] PAIN MANAGEMENT CONSULTATION Name: PHILIPP MOCTEZUMA Room #: EDMUNDO BUENO TaliaElisabethBarrington#: [id number] Admission: 05/15/19 Attend Phys: Kym De La Torre Discharge: Date of : 49 Report #: [id number] 3. The patient will follow up in 3 months. The patient is seen in collaboration with Dr. Fernando Barker today. <ELECTRONICALLY SIGNED> By: Kym De La Torre 05/16/19 [id number] Kym De La Torre /nt
== END ==
LOC: PAIN 07:08
DX: G89.4 Chronic pain syndrome (principal); E66.09 Other obesity due to excess calories; M19.90 Unspecified osteoarthritis, unspecified site; Z79.891 Long term (current) use of opiate analgesic

== ENCOUNTER → 2019-08-17 | Outpatient (CLI) | payer OTHER ==
[~2019-08-17] VITALS: Ht 152.4 cm; Wt 110.8 kg
[~2019-08-17] MED LIST changes: +DOXYCYCLINE 10100 M2 PO; +PROZAC 10 MG CA10 MG PO
[2019-08-17 11:00] VITALS: BP 163/63
--- NOTE | 2019-08-17 11:10 | NUR ---
Pain Clinic Assessment: 1. History of Osteoarthritis: yes History of Rheumatoid Arthritis: Not Applicable 2. Height: 5 ft. 0 in. 152.4 cm. Weight: 244.2 lb. oz. 110.769 kg. Patient's BMI: 47.7 3. Vital Signs: BP: 163/63 Pulse: 63 Resp: 18 Temp: 02 Sat: 98 ECG Mon: 4. Pain Intensity: 7-8 5. Fall Risk: Dizziness: Y Needs help standing or walking: Y Fallen in the last 3 months: N Fall risk comments: 6. Patient on Blood Thinner: None 7. History of Hypertension: Y 8. Opioid Therapy greater than 6 weeks: Y Opiate Contract Signed: 9. Risk Assessment Tool Provided: LOW 10. Functional Assessment Tool: 57/ 11. Recreational Drug Use: Never Drug Type: Tobacco Use: Never Smoker Tobacco Type: Amount or Packs/day: How Many Years: Alcohol Use: No Frequency: Quant:
--- NOTE | 2019-08-18 07:54 | HPC ---
[facility] [place] [address] PAIN MANAGEMENT CONSULTATION Name: PHILIPP MOCTEZUMA Room #: REG [facility].#: [id number] Admission: 08/17/19 Attend Phys: Kym De La Torre Discharge: Date of : 47 Report #: [id number] THIS REPORT FOR: cc: Gina Arreaga MD, Aimee B. MD Hocker,Kym BUCK ~ DATE OF SERVICE: 08/17/2019 CHIEF COMPLAINT: Chronic left knee pain, low back pain. 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 She also does have some low back pain. Today, she is reporting her pain score is 7-8. It is an aching, throbbing soreness that is worse with any activity, walking and weather changes. She feels that repositioning is beneficial as well as her Butrans patch. She denies any problems with constipation or daytime sleepiness. Today, the patient is also reporting that she is having some lower leg pain, some swelling in her right extremity. She always has edema present in her left. 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 ALLERGIES: MORPHINE, CODEINE, FENTANYL, AND PROCAINE. CURRENT LIST OF MEDICATIONS: Doxycycline, Prozac, Butrans 10 mcg patch, Augmentin, Celebrex, buspirone, vitamin D, senna, metformin, glyburide, Extra Strength Tylenol, multivitamin, Plendil, Simvastatin, Benicar and omeprazole. PATIENT'S PQRS: 1. She has diffuse osteoarthritis in her lower extremities. Denies any rheumatoid arthritis. 2. Height is 5 feet, weight is 244, BMI is 47. 3. Vital signs 163/63, pulse is 63, respirations 18, oxygen sat is 98. 4. Pain score is 7-8. 5. Complains of dizziness, does need assistance walking. She is mostly in a wheelchair, has not fallen in the last 3 months. 6. The patient is not on any blood thinners, but does take medicine for hypertension. 7. Opioid therapy is greater than 6 weeks; therefore, an opioid signed contract is on the chart. Risk assessment tool is low. Functional assessment is 57/70. 8. Recreational drug use, she denies. She is not a smoker and does not drink alcohol. According to the prescription monitoring system, she obtains her medicine from a [address] [address] PAIN MANAGEMENT CONSULTATION Name: PHILIPP MOCTEZUMA Room #: REG [facility] Sudhir#: [id number] Admission: 08/17/19 Attend Phys: Kym De La Torre Discharge: Date of : 49 Report #: [id number] mail off pharmacy every 3 months, filling them appropriately. She is well under the 50 MME guidelines. She does safeguard her meds at all times. PHYSICAL EXAMINATION: GENERAL: This is alert and orientated, morbidly obese 74-year-old female who appears her stated age without signs of depression or anxiety or overmedication. HEENT: Normocephalic, atraumatic. Extraocular eye muscles are intact. Mucous membranes are moist. LUNGS: Diminished. EXTREMITIES: Her left leg reveals edematous lower extremity with scarring over her left knee, edema at 3+. Right leg is tender to the touch with 1+ edema, slightly reddened. Pain is increased with standing and weightbearing of her left knee. IMPRESSION: 1. Chronic intractable pain. 2. Severe osteoarthritis. 3. Morbid obesity. 4. Cellulitis. 5. Complex regional pain syndrome of the left lower extremity. 6. Management of opioid medications under written opioid agreement. We reviewed the fact that opiate medications are being used to provide analgesia adequate to support activities of daily living, not attempting to achieve a specific pain score on the 0-10 Visual Analog Scale. The current opiate medications are providing sufficient analgesia to allow the patient to participate in activities of daily living. The patient is not exhibiting any aberrant behavior suggestive of drug diversion. The patient is not having any adverse reactions to medications. The patient is not suffering from daytime somnolence or mental acuity changes. The patient is managing opiate-induced constipation with appropriate veal-ldd-tqpndrz agents and dietary considerations. The patient was counseled on concern for caution with operating a motor vehicle while using opiate medications. PLAN: 1. We discussed treatment options with the patient today. The patient reports that she is having some increased swelling in her right lower extremity. Upon examination, it does look like cellulitis. The patient had seen an Infectious Disease doctor in the past. She had a diagnosis of cellulitis. I encouraged her to keep her leg elevated above the heart to decrease some of her edema and if symptoms continue to worsen to contact her Infectious Disease doctor. 2. The patient does report having some increased pain. I encouraged her to utilize her Butrans patch and Celebrex on a daily basis. The patient finds the Butrans very beneficial at 10 mcg per day. We did discuss possible treatment in the future when the medication of tanezumab comes on the market. This is a medicine for osteoarthritis and she may find this beneficial. The patient would [address] [address] PAIN MANAGEMENT CONSULTATION Name: PHILIPP MOCTEZUMA Room #: REG XIMENA Peguero#: [id number] Admission: 08/17/19 Attend Phys: Kym De La Torre Discharge: Date of : 49 Report #: [id number] like to be able to decrease her pain slightly, but note she did not tolerate increases in her Butrans patch strength. 3. We will have Dr. Fernando Barker, send her medications to [facility] for refills for a 3-month supply. The patient does not need Celebrex refills today. 4. The patient is seen in collaboration today with Dr. Fernando Barker. <ELECTRONICALLY SIGNED> By: Kym De La Torre 08/18/19 [id number] Kym De La Torre /nt
== END ==
LOC: PAIN 06:44
DX: M17.12 Unilateral primary osteoarthritis, left knee (principal); G89.29 Other chronic pain; Z79.899 Other long term (current) drug therapy; Z79.891 Long term (current) use of opiate analgesic

== ENCOUNTER → 2019-11-20 | Outpatient (CLI) | payer OTHER ==
[~2019-11-20] VITALS: Ht 152.4 cm; Wt 106.8 kg
[~2019-11-20] MED LIST changes: +DEPLIN-ALGAL O1 EAC1 PO; +DESVENLAFAXINE50 MG PO; +GABAPENTIN100 MG PO; +PHENERGAN 25 MG25 MG PO
[2019-11-20 13:29] VITALS: BP 132/53
--- NOTE | 2019-11-20 13:42 | NUR ---
Pain Clinic Assessment: 1. History of Osteoarthritis: yes History of Rheumatoid Arthritis: Not Applicable 2. Height: 5 ft. 0 in. 152.4 cm. Weight: 235.5 lb. oz. 106.822 kg. Patient's BMI: 46.0 3. Vital Signs: BP: 132/53 Pulse: 66 Resp: 20 Temp: 02 Sat: 99 ECG Mon: 4. Pain Intensity: 10 5. Fall Risk: Dizziness: N Needs help standing or walking: Y Fallen in the last 3 months: N Fall risk comments: 6. Patient on Blood Thinner: None 7. History of Hypertension: Y 8. Opioid Therapy greater than 6 weeks: Y Opiate Contract Signed: 9. Risk Assessment Tool Provided: LOW 10. Functional Assessment Tool: 57/ 11. Recreational Drug Use: Never Drug Type: Tobacco Use: Never Smoker Tobacco Type: Amount or Packs/day: How Many Years: Alcohol Use: No Frequency: Quant:
--- NOTE | 2019-11-24 15:51 | HPC ---
[facility] [place] [address] PAIN MANAGEMENT CONSULTATION Name: PHILIPP MOCTEZUMA Room #: REG XIMENA EmelyNoel.#: [id number] Admission: 11/20/19 Attend Phys: Fernando Barker MD Discharge: Date of : 47 Report #: [id number] THIS REPORT FOR: cc: Gina Arreaga MD,Gina Barker,Fernando Topete MD ~ CC: Gina Barker DATE OF SERVICE: 11/20/2019 45-minute consultation for chronic pain. The patient was in pain clinic today for a lengthy discussion about her intractable left knee pain. Pain has been so severe that she has been suicidal at times. She was worse when she was on Prozac and has discontinued it. Since her last visit here, she has seen multiple consultants and we reviewed the opinions of each one of them. She first saw Dr. Ceja who reported that there was no operation that he could perform except perhaps an above-knee amputation. She then saw Dr. Escalante who also felt that there was not a surgical orthopedic operation to help. Amputation was mentioned during that visit as well. I should make it clear that neither one of these doctors felt that that was a particularly good option as I will discuss below-knee amputation certainly may not eliminate her pain. Dr. Ceja suggested that she see Dr. Daily "cryo-neurologist" possibly for genicular nerve blocks. He did not feel that this would be helpful and performed no procedures. She was then seen by Dr. Bowser, a information systems security specialist. He did not feel that a prosthesis could be arranged if she had an amputation, but they did not discuss much further. He did send her to [facility]. He had another consultation where they discussed prostheses, but were pessimistic. She has continued to use medication and is grateful for Butrans which provides some measure of relief, but is not adequate. Without it, she feels that she would be much worse. She had tried many other medicines. We tried to push the dose from 10 mcg to 15 mcg, but there is a breaking point and she has agitation side effects at the higher dose and does not want to use a continuous patch at 15. She is given some consideration to THC, but is living in [place] and it is not considered a medicine. I am skeptical that it would provide long term benefits and may also worsen her psychological condition, she should be very cautious. She tried CBD oil with no relief. She has some questions about reinitiating a breakthrough medicine. We discussed p.o. buprenorphine which could be used to supplement her Butrans patch since she does tolerate it. Hydrocodone has been used in the past and can be considered as a transition of [facility] [address] [place] [address] PAIN MANAGEMENT CONSULTATION Name: PHILIPP MOCTEZUMA Room #: REG CLEvelia Peguero#: [id number] Admission: 11/20/19 Attend Phys: Fernando Barker MD Discharge: Date of : 49 Report #: [id number] opioid rotation. I think she should probably go off of buprenorphine if we decide to go that route to a more pure opioid. Buprenorphine has opioid agonist antagonist effects. We discussed the addition of gabapentin. It surprises me that when she has not had a trial, I did not look back through all of our records, but I am sure at some point in time it has been given as a trial co-analgesics. She complains today also very localized tenderness over her left hip. This is bursitis and may respond to cortisone injection. This is a separate pain generator. I had a lengthy discussion then ensued regarding central pain. If she has an amputation, she may still have phantom limb pain. She has developed pathways through the central nervous system and has central pain, I am certain. Amputation may remove the offending limb, but I do not think it will eliminate her pain. With her obesity, her mobility would be even further limited. Spinal cord stimulation certainly worth a trial. She has not had a back surgery and I think that we could safely undergo a trial and she is open to the possibility she was given some information. We discussed a scooter of some sort to use in her house. She is, by her own description, a hoarder so using a scooter in the house may not be ideal, but she can get around on her feet without excruciating pain. Either motorized wheelchair or scooter might be helpful for her, but there is a lot of red tape. I am not even sure which type of device to order and I felt that Dr. Bowser of all the physicians that she has seen might be the best in advising her and understand the paperwork necessary for Medicare to cover a mobility device. She may make appointment then to see him again. We will continue her medications under our medication program. She is on an opioid agreement for her Butrans. I am also prescribing her Celebrex, a trial of gabapentin 100 mg at bedtime, slowly increasing to b.i.d., then t.i.d. will also be initiated. We can increase it from there. She was given information regarding spinal cord stimulation process and I will see her back after she has had a psychology visit to confirm her suitability. Many, many questions were asked and answered. I also reviewed her x-rays. Total time spent in the clinic was about 2 hours, 45 minutes of which was spent with me in consultation. <ELECTRONICALLY SIGNED> By: Fernando Barker MD 11/24/19 [id number] Fernando Barker MD /nt
== END ==
LOC: PAIN 06:54
PROVIDERS: ATTEND Anesthesiology Pain Medicine
DX: G89.29 Other chronic pain (principal)

== ENCOUNTER → 2019-12-11 | Outpatient (CLI) | payer OTHER ==
[~2019-12-11] VITALS: Ht 152.4 cm; Wt 106.6 kg
[~2019-12-11] MED LIST changes: +NUCYNTA50 MG PO; +PRISTIQ100 MG PO
--- NOTE | ~2019-12-11 | HPC ---
[facility] [place] [address] PAIN MANAGEMENT CONSULTATION Name: PHILIPP MOCTEZUMA Room #: REG XIMENA Srinath.#: [id number] Admission: 12/11/19 Attend Phys: Fernando Barker MD Discharge: Date of : 49 Report #: [id number] THIS REPORT FOR: cc: Gina Arreaga MD, Aimee B. MD Morgan, Richard L. MD ~ CC: Gina Barker DATE OF SERVICE: 12/11/2019 Followup visit for chronic pain. The patient returns to pain clinic today in followup for her chronic pain. She has multiple pain generators. She is morbidly obese. She complains of pain with trochanteric bursitis and bilateral shoulder pain, left worse than right. She has got a lot on her plate. Her daughter has been diagnosed with MS and has become dependent on she and her They are trying to get her into a nursing facility. This is causing a great deal of stress. I spent about 45 minutes with her at last visit, talking with her and she suffers from severe depression. Not a lot of things have gone well for her since her last consultation on 11/20/2019. She is here today for an injection to see if we can provide some relief of at least her bursitis, which is affecting her sleep. PQRS is unchanged from prior visit. She has significant osteoarthritis involving hips, back and shoulders. Lots of spondylosis. She is morbidly obese. BMI is 45.9, blood pressure 150/69, heart rate 67, respirations 16, O2 sat 100%. Pain intensity 8/10. She has not fallen. She denies any use of blood thinners, but has hypertension, which is under treatment by Dr. Arreaga. She is on an opioid agreement. I have her on Butrans currently. We discussed transition today. Opioid risk score is 1. She is at low risk for addiction. Functional assessment score is 57, which I am sure is in part due to all the psychosocial features ongoing in her life. Her morbid obesity and chronic aches and pains. She denies use of tobacco and alcohol. IMPRESSION: 1. Severe depression, chronic. 2. Severe chronic pain, multidimensional with multiple pain generators. 3. Morbid obesity. 4. Trochanteric bursitis. 5. Complex regional pain syndrome involving the left lower extremity as a result of severe knee degeneration with diffuse swelling and allodynia. RECOMMENDATION: Today, she is here for trochanteric bursa injection discussed [address] [address] PAIN MANAGEMENT CONSULTATION Name: PHILIPP MOCTEZUMA Room #: REG [facility]#: [id number] Admission: 12/11/19 Attend Phys: Fernando Barker MD Discharge: Date of : 49 Report #: [id number] at last visit. PROCEDURE: Skin was prepped with ChloraPrep and a 25-gauge needle advanced to contact the trochanter and withdrawn slightly. I then injected at that depth a total of 5 mL of 0.5% bupivacaine mixed with 40 mg of triamcinolone into the bursa. Needle was removed. We did make one change in her medicine today and we will see how the trial goes. She is not happy with the Butrans patches at 10 and cannot go up because she says that she has side effects. I am going to transition her to a different opioid. We will do opioid rotation to Nucynta. She is on an antidepressant. Tapentadol effects norepinephrine not serotonin, so she should not have serotonin syndrome. I will put her on the lowest dose 50 mg b.i.d. She is to call our clinic and let us know how it is going. By: [id number] Fernando Barker MD /nt
[2019-12-11 13:36] VITALS: BP 150/69
--- NOTE | 2019-12-11 13:49 | NUR ---
Pain Clinic Assessment: 1. History of Osteoarthritis: HIPS BACK History of Rheumatoid Arthritis: Not Applicable 2. Height: 5 ft. 0 in. 152.4 cm. Weight: 235.0 lb. oz. 106.596 kg. Patient's BMI: 45.9 3. Vital Signs: BP: 150/69 Pulse: 67 Resp: 16 Temp: 02 Sat: 100 ECG Mon: 4. Pain Intensity: 8 5. Fall Risk: Dizziness: Y Needs help standing or walking: Y Fallen in the last 3 months: N Fall risk comments: 6. Patient on Blood Thinner: None 7. History of Hypertension: Y 8. Opioid Therapy greater than 6 weeks: Y Opiate Contract Signed: 9. Risk Assessment Tool Provided: LOW RISK 06/02 10. Functional Assessment Tool: 11. Recreational Drug Use: Never Drug Type: Tobacco Use: Never Smoker Tobacco Type: Amount or Packs/day: How Many Years: Alcohol Use: No Frequency: Quant:
== END | disposition home or self-care (01) ==
LOC: PAIN 07:04
PROVIDERS: ATTEND Anesthesiology Pain Medicine
DX: M70.62 Trochanteric bursitis, left hip (principal); Z98.890 Other specified postprocedural states; I10 Essential (primary) hypertension; F32.89 Other specified depressive episodes; E66.01 Morbid (severe) obesity due to excess calories; G90.522 Complex regional pain syndrome I of left lower limb; Z79.899 Other long term (current) drug therapy; Z68.42 Body mass index [BMI] 45.0-49.9, adult

== ENCOUNTER → 2020-04-15 | Outpatient (CLI) | payer OTHER ==
[~2020-04-15] VITALS: Ht 152.4 cm; Wt 111.1 kg
[2020-04-15 09:37] VITALS: BP 166/78
== END ==
LOC: PAIN 06:53
PROVIDERS: ATTEND Anesthesiology Pain Medicine
DX: G89.4 Chronic pain syndrome (principal); F11.20 Opioid dependence, uncomplicated; L03.115 Cellulitis of right lower limb; L03.116 Cellulitis of left lower limb; E66.01 Morbid (severe) obesity due to excess calories; Z88.8 Allergy status to other drugs, medicaments and biological substances; Z79.899 Other long term (current) drug therapy

== ENCOUNTER → 2020-06-10 | Outpatient (CLI) | payer OTHER | LOC: HYPER 13:58 | PROVIDERS: ATTEND Emergency Medicine | DX: T81.89XA Other complications of procedures, not elsewhere classified, initial encounter (principal); E11.622 Type 2 diabetes mellitus with other skin ulcer; L97.822 Non-pressure chronic ulcer of other part of left lower leg with fat layer exposed; L03.116 Cellulitis of left lower limb; L02.416 Cutaneous abscess of left lower limb; E11.40 Type 2 diabetes mellitus with diabetic neuropathy, unspecified; E66.01 Morbid (severe) obesity due to excess calories; E78.00 Pure hypercholesterolemia, unspecified; E03.9 Hypothyroidism, unspecified; E78.5 Hyperlipidemia, unspecified; D63.8 Anemia in other chronic diseases classified elsewhere; G90.09 Other idiopathic peripheral autonomic neuropathy; R60.0 Localized edema; I10 Essential (primary) hypertension; K21.9 Gastro-esophageal reflux disease without esophagitis; M19.90 Unspecified osteoarthritis, unspecified site; F41.9 Anxiety disorder, unspecified; F33.2 Major depressive disorder, recurrent severe without psychotic features; Z68.41 Body mass index [BMI] 40.0-44.9, adult; Z86.718 Personal history of other venous thrombosis and embolism; Z90.710 Acquired absence of both cervix and uterus; Z96.653 Presence of artificial knee joint, bilateral; Y92.238 Other place in hospital as the place of occurrence of the external cause; Y83.8 Other surgical procedures as the cause of abnormal reaction of the patient, or of later complication, without mention of misadventure at the time of the procedure ==

== ENCOUNTER → 2020-06-24 | Outpatient (CLI) | payer OTHER | LOC: HYPER 15:03 | PROVIDERS: ATTEND Emergency Medicine | DX: T81.89XD Other complications of procedures, not elsewhere classified, subsequent encounter (principal); E11.622 Type 2 diabetes mellitus with other skin ulcer; L97.822 Non-pressure chronic ulcer of other part of left lower leg with fat layer exposed; L03.116 Cellulitis of left lower limb; L02.416 Cutaneous abscess of left lower limb; E11.42 Type 2 diabetes mellitus with diabetic polyneuropathy; E66.01 Morbid (severe) obesity due to excess calories; E78.00 Pure hypercholesterolemia, unspecified; E03.9 Hypothyroidism, unspecified; E78.5 Hyperlipidemia, unspecified; D63.8 Anemia in other chronic diseases classified elsewhere; G90.09 Other idiopathic peripheral autonomic neuropathy; R60.0 Localized edema; I10 Essential (primary) hypertension; K21.9 Gastro-esophageal reflux disease without esophagitis; M19.90 Unspecified osteoarthritis, unspecified site; F41.9 Anxiety disorder, unspecified; F33.2 Major depressive disorder, recurrent severe without psychotic features; Z68.41 Body mass index [BMI] 40.0-44.9, adult; Z86.718 Personal history of other venous thrombosis and embolism; Y83.8 Other surgical procedures as the cause of abnormal reaction of the patient, or of later complication, without mention of misadventure at the time of the procedure ==

== ENCOUNTER → 2020-07-08 | Outpatient (CLI) | payer OTHER | LOC: HYPER 11:54 | PROVIDERS: ATTEND Emergency Medicine | DX: T81.89XD Other complications of procedures, not elsewhere classified, subsequent encounter (principal); E11.622 Type 2 diabetes mellitus with other skin ulcer; L97.822 Non-pressure chronic ulcer of other part of left lower leg with fat layer exposed; L03.116 Cellulitis of left lower limb; L02.416 Cutaneous abscess of left lower limb; E11.42 Type 2 diabetes mellitus with diabetic polyneuropathy; E66.01 Morbid (severe) obesity due to excess calories; E78.00 Pure hypercholesterolemia, unspecified; E03.9 Hypothyroidism, unspecified; E78.5 Hyperlipidemia, unspecified; D63.8 Anemia in other chronic diseases classified elsewhere; G90.09 Other idiopathic peripheral autonomic neuropathy; R60.0 Localized edema; I10 Essential (primary) hypertension; K21.9 Gastro-esophageal reflux disease without esophagitis; M19.90 Unspecified osteoarthritis, unspecified site; F41.9 Anxiety disorder, unspecified; F33.2 Major depressive disorder, recurrent severe without psychotic features; Z68.41 Body mass index [BMI] 40.0-44.9, adult; Z86.718 Personal history of other venous thrombosis and embolism; Y83.8 Other surgical procedures as the cause of abnormal reaction of the patient, or of later complication, without mention of misadventure at the time of the procedure ==

== ENCOUNTER → 2020-07-18 | Outpatient (CLI) | payer OTHER ==
[~2020-07-18] VITALS: Ht 152.4 cm; Wt 98.9 kg
[~2020-07-18] MED LIST changes: +CLARITIN10 M3 PO; +CULTURELLE1 EACH PO; +RIFADIN150 MG PO; +VITAMIN C500 M1 PO
[2020-07-18 13:42] VITALS: BP 158/76
--- NOTE | 2020-07-18 13:49 | NUR ---
Pain Clinic Assessment: 1. History of Osteoarthritis: HIPS BACK History of Rheumatoid Arthritis: Not Applicable 2. Height: 5 ft. 0 in. 152.4 cm. Weight: 218.0 lb. oz. 98.884 kg. Patient's BMI: 42.6 3. Vital Signs: BP: 158/76 Pulse: 75 Resp: 16 Temp: 02 Sat: 99 ECG Mon: 4. Pain Intensity: 3 SITTING 7 WALKING 5. Fall Risk: Dizziness: N Needs help standing or walking: Y Fallen in the last 3 months: N Fall risk comments: WHEELCHAIR 6. Patient on Blood Thinner: None 7. History of Hypertension: Y 8. Opioid Therapy greater than 6 weeks: Y Opiate Contract Signed: 9. Risk Assessment Tool Provided: LOW RISK 06/02 10. Functional Assessment Tool: 11. Recreational Drug Use: Never Drug Type: Tobacco Use: Never Smoker Tobacco Type: Amount or Packs/day: How Many Years: Alcohol Use: No Frequency: Quant:
== END ==
LOC: PAIN 07:04
PROVIDERS: ATTEND Clinical Nurse Specialist Adult Health
DX: G89.4 Chronic pain syndrome (principal); E66.01 Morbid (severe) obesity due to excess calories; L03.90 Cellulitis, unspecified; F41.8 Other specified anxiety disorders; Z79.899 Other long term (current) drug therapy; Z88.8 Allergy status to other drugs, medicaments and biological substances

== ENCOUNTER → 2020-07-22 | Outpatient (CLI) | payer OTHER | LOC: HYPER 14:39 | PROVIDERS: ATTEND Emergency Medicine | DX: T81.89XD Other complications of procedures, not elsewhere classified, subsequent encounter (principal); E11.622 Type 2 diabetes mellitus with other skin ulcer; L97.822 Non-pressure chronic ulcer of other part of left lower leg with fat layer exposed; L03.116 Cellulitis of left lower limb; L02.416 Cutaneous abscess of left lower limb; E11.42 Type 2 diabetes mellitus with diabetic polyneuropathy; E66.01 Morbid (severe) obesity due to excess calories; E78.00 Pure hypercholesterolemia, unspecified; E03.9 Hypothyroidism, unspecified; E78.5 Hyperlipidemia, unspecified; D63.8 Anemia in other chronic diseases classified elsewhere; G90.09 Other idiopathic peripheral autonomic neuropathy; R60.0 Localized edema; I10 Essential (primary) hypertension; K21.9 Gastro-esophageal reflux disease without esophagitis; M19.90 Unspecified osteoarthritis, unspecified site; F41.9 Anxiety disorder, unspecified; F33.2 Major depressive disorder, recurrent severe without psychotic features; Z68.41 Body mass index [BMI] 40.0-44.9, adult; Z86.718 Personal history of other venous thrombosis and embolism; Y83.8 Other surgical procedures as the cause of abnormal reaction of the patient, or of later complication, without mention of misadventure at the time of the procedure ==

== ENCOUNTER → 2020-08-05 | Outpatient (CLI) | payer OTHER | LOC: HYPER 14:28 | PROVIDERS: ATTEND Emergency Medicine | DX: T81.89XD Other complications of procedures, not elsewhere classified, subsequent encounter (principal); E11.622 Type 2 diabetes mellitus with other skin ulcer; L97.822 Non-pressure chronic ulcer of other part of left lower leg with fat layer exposed; L03.116 Cellulitis of left lower limb; L02.416 Cutaneous abscess of left lower limb; E11.42 Type 2 diabetes mellitus with diabetic polyneuropathy; E66.01 Morbid (severe) obesity due to excess calories; E78.00 Pure hypercholesterolemia, unspecified; E03.9 Hypothyroidism, unspecified; E78.5 Hyperlipidemia, unspecified; D63.8 Anemia in other chronic diseases classified elsewhere; G90.09 Other idiopathic peripheral autonomic neuropathy; R60.0 Localized edema; I10 Essential (primary) hypertension; K21.9 Gastro-esophageal reflux disease without esophagitis; M19.90 Unspecified osteoarthritis, unspecified site; F41.9 Anxiety disorder, unspecified; F33.2 Major depressive disorder, recurrent severe without psychotic features; Z68.41 Body mass index [BMI] 40.0-44.9, adult; Z86.718 Personal history of other venous thrombosis and embolism; Y83.8 Other surgical procedures as the cause of abnormal reaction of the patient, or of later complication, without mention of misadventure at the time of the procedure ==

== ENCOUNTER → 2020-08-26 | Outpatient (CLI) | payer OTHER | LOC: HYPER 14:44 | PROVIDERS: ATTEND Emergency Medicine | DX: T81.89XD Other complications of procedures, not elsewhere classified, subsequent encounter (principal); E11.622 Type 2 diabetes mellitus with other skin ulcer; L97.822 Non-pressure chronic ulcer of other part of left lower leg with fat layer exposed; L03.116 Cellulitis of left lower limb; L02.416 Cutaneous abscess of left lower limb; E11.42 Type 2 diabetes mellitus with diabetic polyneuropathy; E66.01 Morbid (severe) obesity due to excess calories; E78.00 Pure hypercholesterolemia, unspecified; E03.9 Hypothyroidism, unspecified; E78.5 Hyperlipidemia, unspecified; D63.8 Anemia in other chronic diseases classified elsewhere; G90.09 Other idiopathic peripheral autonomic neuropathy; R60.0 Localized edema; I10 Essential (primary) hypertension; K21.9 Gastro-esophageal reflux disease without esophagitis; M19.90 Unspecified osteoarthritis, unspecified site; F41.9 Anxiety disorder, unspecified; F33.2 Major depressive disorder, recurrent severe without psychotic features; Z68.41 Body mass index [BMI] 40.0-44.9, adult; Z86.718 Personal history of other venous thrombosis and embolism; Y83.8 Other surgical procedures as the cause of abnormal reaction of the patient, or of later complication, without mention of misadventure at the time of the procedure ==

== ENCOUNTER → 2020-09-09 | Outpatient (CLI) | payer OTHER | LOC: HYPER 11:38 | PROVIDERS: ATTEND Emergency Medicine | DX: T81.89XD Other complications of procedures, not elsewhere classified, subsequent encounter (principal); E11.622 Type 2 diabetes mellitus with other skin ulcer; L97.822 Non-pressure chronic ulcer of other part of left lower leg with fat layer exposed; L03.116 Cellulitis of left lower limb; L02.416 Cutaneous abscess of left lower limb; E11.42 Type 2 diabetes mellitus with diabetic polyneuropathy; E66.01 Morbid (severe) obesity due to excess calories; E78.00 Pure hypercholesterolemia, unspecified; E03.9 Hypothyroidism, unspecified; E78.5 Hyperlipidemia, unspecified; D63.8 Anemia in other chronic diseases classified elsewhere; G90.09 Other idiopathic peripheral autonomic neuropathy; R60.0 Localized edema; I10 Essential (primary) hypertension; K21.9 Gastro-esophageal reflux disease without esophagitis; M19.90 Unspecified osteoarthritis, unspecified site; F41.9 Anxiety disorder, unspecified; F33.2 Major depressive disorder, recurrent severe without psychotic features; Z68.41 Body mass index [BMI] 40.0-44.9, adult; Z86.718 Personal history of other venous thrombosis and embolism; Y83.8 Other surgical procedures as the cause of abnormal reaction of the patient, or of later complication, without mention of misadventure at the time of the procedure ==

== ENCOUNTER → 2020-09-30 | Outpatient (CLI) | payer OTHER | LOC: HYPER 14:57 | PROVIDERS: ATTEND Emergency Medicine | DX: T81.89XD Other complications of procedures, not elsewhere classified, subsequent encounter (principal); E11.622 Type 2 diabetes mellitus with other skin ulcer; L97.822 Non-pressure chronic ulcer of other part of left lower leg with fat layer exposed; L03.116 Cellulitis of left lower limb; L02.416 Cutaneous abscess of left lower limb; E11.42 Type 2 diabetes mellitus with diabetic polyneuropathy; E66.01 Morbid (severe) obesity due to excess calories; E78.00 Pure hypercholesterolemia, unspecified; E03.9 Hypothyroidism, unspecified; E78.5 Hyperlipidemia, unspecified; D63.8 Anemia in other chronic diseases classified elsewhere; G90.09 Other idiopathic peripheral autonomic neuropathy; R60.0 Localized edema; I10 Essential (primary) hypertension; K21.9 Gastro-esophageal reflux disease without esophagitis; M19.90 Unspecified osteoarthritis, unspecified site; F41.9 Anxiety disorder, unspecified; F33.2 Major depressive disorder, recurrent severe without psychotic features; Z68.41 Body mass index [BMI] 40.0-44.9, adult; Z86.718 Personal history of other venous thrombosis and embolism; Y83.8 Other surgical procedures as the cause of abnormal reaction of the patient, or of later complication, without mention of misadventure at the time of the procedure ==

== ENCOUNTER → 2020-10-07 | Outpatient (CLI) | payer OTHER ==
[~2020-10-07] VITALS: Ht 152.4 cm; Wt 111.1 kg
[2020-10-07 12:48] VITALS: BP 150/66
--- NOTE | 2020-10-07 12:54 | NUR ---
Pain Clinic Assessment: 1. History of Osteoarthritis: HIPS BACK KNEES History of Rheumatoid Arthritis: Not Applicable 2. Height: 5 ft. 0 in. 152.4 cm. Weight: 245.0 lb. oz. 111.132 kg. Patient's BMI: 47.8 3. Vital Signs: BP: 150/66 Pulse: 66 Resp: 20 Temp: 02 Sat: 96 ECG Mon: 4. Pain Intensity: 4-SITTING; 9-WALKING 5. Fall Risk: Dizziness: N Needs help standing or walking: N Fallen in the last 3 months: N Fall risk comments: WHEELCHAIR 6. Patient on Blood Thinner: None 7. History of Hypertension: Y 8. Opioid Therapy greater than 6 weeks: Y Opiate Contract Signed: 9. Risk Assessment Tool Provided: LOW RISK 06/02 10. Functional Assessment Tool: 11. Recreational Drug Use: Never Drug Type: Tobacco Use: Never Smoker Tobacco Type: Amount or Packs/day: How Many Years: Alcohol Use: No Frequency: Quant:
== END ==
LOC: PAIN 10:21
PROVIDERS: ATTEND Clinical Nurse Specialist Adult Health
DX: G89.4 Chronic pain syndrome (principal); E66.01 Morbid (severe) obesity due to excess calories; F41.8 Other specified anxiety disorders; L03.116 Cellulitis of left lower limb; F11.20 Opioid dependence, uncomplicated; Z88.8 Allergy status to other drugs, medicaments and biological substances; Z79.899 Other long term (current) drug therapy

== ENCOUNTER → 2020-10-14 | Outpatient (CLI) | payer OTHER | LOC: HYPER 07:36 | PROVIDERS: ATTEND Emergency Medicine | DX: T81.89XD Other complications of procedures, not elsewhere classified, subsequent encounter (principal); E11.622 Type 2 diabetes mellitus with other skin ulcer; L97.822 Non-pressure chronic ulcer of other part of left lower leg with fat layer exposed; L03.116 Cellulitis of left lower limb; L02.416 Cutaneous abscess of left lower limb; E11.42 Type 2 diabetes mellitus with diabetic polyneuropathy; E66.01 Morbid (severe) obesity due to excess calories; E78.00 Pure hypercholesterolemia, unspecified; E03.9 Hypothyroidism, unspecified; E78.5 Hyperlipidemia, unspecified; D63.8 Anemia in other chronic diseases classified elsewhere; G90.09 Other idiopathic peripheral autonomic neuropathy; R60.0 Localized edema; I10 Essential (primary) hypertension; K21.9 Gastro-esophageal reflux disease without esophagitis; M19.90 Unspecified osteoarthritis, unspecified site; F41.9 Anxiety disorder, unspecified; F33.2 Major depressive disorder, recurrent severe without psychotic features; Z68.41 Body mass index [BMI] 40.0-44.9, adult; Z86.718 Personal history of other venous thrombosis and embolism; Y83.8 Other surgical procedures as the cause of abnormal reaction of the patient, or of later complication, without mention of misadventure at the time of the procedure ==

== ENCOUNTER → 2020-12-30 | Outpatient (CLI) | payer OTHER ==
[~2020-12-30] MED LIST changes: +BUTRANS1 EAC3 TRANSDERM
[2020-12-30 10:36] VITALS: BP 140/65
--- NOTE | 2020-12-30 10:57 | NUR ---
Pain Clinic Assessment: 1. History of Osteoarthritis: HIPS BACK KNEES History of Rheumatoid Arthritis: Not Applicable 2. Height: 5 ft. 0 in. 152.4 cm. Weight: lb. oz. kg. Patient's BMI: 3. Vital Signs: BP: 140/65 Pulse: 63 Resp: 16 Temp: 02 Sat: 100 ECG Mon: 4. Pain Intensity: 4-SITTING; 9-WALKING 5. Fall Risk: Dizziness: N Needs help standing or walking: Y Fallen in the last 3 months: N Fall risk comments: WHEELCHAIR 6. Patient on Blood Thinner: None 7. History of Hypertension: Y 8. Opioid Therapy greater than 6 weeks: Y Opiate Contract Signed: 9. Risk Assessment Tool Provided: LOW RISK 06/02 10. Functional Assessment Tool: 11. Recreational Drug Use: Never Drug Type: Tobacco Use: Never Smoker Tobacco Type: Amount or Packs/day: How Many Years: Alcohol Use: No Frequency: Quant:
== END ==
LOC: PAIN 07:00
PROVIDERS: ATTEND Clinical Nurse Specialist Adult Health
DX: G89.4 Chronic pain syndrome (principal); I10 Essential (primary) hypertension; E66.01 Morbid (severe) obesity due to excess calories; F32.9 Major depressive disorder, single episode, unspecified; Z79.891 Long term (current) use of opiate analgesic; Z79.899 Other long term (current) drug therapy

== ENCOUNTER → 2021-04-28 | Outpatient (CLI) | payer OTHER ==
[~2021-04-28] VITALS: Ht 152.4 cm; Wt 93.9 kg
[~2021-04-28] MED LIST changes: +COLACE100 MG PO; +LOPRESSOR50 MG PO; +MELOXICAM15 MG PO; +PROTONIX40 M2 PO
[2021-04-28 13:52] VITALS: BP 148/68
--- NOTE | 2021-04-28 14:06 | NUR ---
Pain Clinic Assessment: 1. History of Osteoarthritis: HIPS BACK KNEES History of Rheumatoid Arthritis: Not Applicable 2. Height: 5 ft. 0 in. 152.4 cm. Weight: 207.0 lb. oz. 93.895 kg. Patient's BMI: 40.4 3. Vital Signs: BP: 148/68 Pulse: 61 Resp: 14 Temp: 02 Sat: 100 ECG Mon: 4. Pain Intensity: 6 5. Fall Risk: Dizziness: N Needs help standing or walking: Y Fallen in the last 3 months: N Fall risk comments: WHEELCHAIR 6. Patient on Blood Thinner: None 7. History of Hypertension: Y 8. Opioid Therapy greater than 6 weeks: Y Opiate Contract Signed: 9. Risk Assessment Tool Provided: LOW RISK 06/02 10. Functional Assessment Tool: 11. Recreational Drug Use: Never Drug Type: Tobacco Use: Never Smoker Tobacco Type: Amount or Packs/day: How Many Years: Alcohol Use: No Frequency: Quant:
== END ==
LOC: PAIN 10:11
PROVIDERS: ATTEND Anesthesiology Pain Medicine
DX: G89.29 Other chronic pain (principal); M25.562 Pain in left knee; Z89.612 Acquired absence of left leg above knee; Z79.82 Long term (current) use of aspirin; Z79.84 Long term (current) use of oral hypoglycemic drugs; Z79.899 Other long term (current) drug therapy; Z88.8 Allergy status to other drugs, medicaments and biological substances

== ENCOUNTER → 2021-04-30 | Outpatient (CLI) | payer OTHER | LOC: HYPER 13:54 | PROVIDERS: ATTEND Emergency Medicine | DX: T87.81 Dehiscence of amputation stump (principal); T87.44 Infection of amputation stump, left lower extremity; E11.622 Type 2 diabetes mellitus with other skin ulcer; L97.122 Non-pressure chronic ulcer of left thigh with fat layer exposed; L03.116 Cellulitis of left lower limb; E11.42 Type 2 diabetes mellitus with diabetic polyneuropathy; I10 Essential (primary) hypertension; E03.9 Hypothyroidism, unspecified; E78.00 Pure hypercholesterolemia, unspecified; E78.5 Hyperlipidemia, unspecified; K21.9 Gastro-esophageal reflux disease without esophagitis; M19.90 Unspecified osteoarthritis, unspecified site; E66.01 Morbid (severe) obesity due to excess calories; F32.9 Major depressive disorder, single episode, unspecified; F41.9 Anxiety disorder, unspecified; Z68.39 Body mass index [BMI] 39.0-39.9, adult; Z86.718 Personal history of other venous thrombosis and embolism; Z87.01 Personal history of pneumonia (recurrent); Y83.5 Amputation of limb(s) as the cause of abnormal reaction of the patient, or of later complication, without mention of misadventure at the time of the procedure ==

== ENCOUNTER → 2021-05-08 | Outpatient (CLI) | payer OTHER | LOC: HYPER 09:24 | PROVIDERS: ATTEND Emergency Medicine | DX: T87.81 Dehiscence of amputation stump (principal); T87.44 Infection of amputation stump, left lower extremity; E11.622 Type 2 diabetes mellitus with other skin ulcer; L97.122 Non-pressure chronic ulcer of left thigh with fat layer exposed; E11.42 Type 2 diabetes mellitus with diabetic polyneuropathy; L03.115 Cellulitis of right lower limb; I10 Essential (primary) hypertension; E03.9 Hypothyroidism, unspecified; E78.00 Pure hypercholesterolemia, unspecified; E78.5 Hyperlipidemia, unspecified; K21.9 Gastro-esophageal reflux disease without esophagitis; M19.90 Unspecified osteoarthritis, unspecified site; E66.01 Morbid (severe) obesity due to excess calories; F41.9 Anxiety disorder, unspecified; F32.9 Major depressive disorder, single episode, unspecified; Z86.718 Personal history of other venous thrombosis and embolism; Z87.01 Personal history of pneumonia (recurrent); Z89.612 Acquired absence of left leg above knee; Z79.82 Long term (current) use of aspirin; Z79.84 Long term (current) use of oral hypoglycemic drugs; Z79.899 Other long term (current) drug therapy; Y83.5 Amputation of limb(s) as the cause of abnormal reaction of the patient, or of later complication, without mention of misadventure at the time of the procedure ==

== ENCOUNTER → 2021-05-15 | Outpatient (CLI) | payer OTHER | LOC: HYPER 13:14 | PROVIDERS: ATTEND Emergency Medicine | DX: T87.81 Dehiscence of amputation stump (principal); T87.44 Infection of amputation stump, left lower extremity; E11.622 Type 2 diabetes mellitus with other skin ulcer; L97.122 Non-pressure chronic ulcer of left thigh with fat layer exposed; E11.42 Type 2 diabetes mellitus with diabetic polyneuropathy; I10 Essential (primary) hypertension; E03.9 Hypothyroidism, unspecified; E78.00 Pure hypercholesterolemia, unspecified; E78.5 Hyperlipidemia, unspecified; M19.90 Unspecified osteoarthritis, unspecified site; K21.9 Gastro-esophageal reflux disease without esophagitis; E66.01 Morbid (severe) obesity due to excess calories; F41.9 Anxiety disorder, unspecified; F33.2 Major depressive disorder, recurrent severe without psychotic features; Z68.39 Body mass index [BMI] 39.0-39.9, adult; Z86.718 Personal history of other venous thrombosis and embolism; Z87.01 Personal history of pneumonia (recurrent); Z79.82 Long term (current) use of aspirin; Z79.84 Long term (current) use of oral hypoglycemic drugs; Z79.899 Other long term (current) drug therapy; Y83.5 Amputation of limb(s) as the cause of abnormal reaction of the patient, or of later complication, without mention of misadventure at the time of the procedure ==

== ENCOUNTER → 2021-05-28 | Outpatient (CLI) | payer OTHER | LOC: HYPER 09:45 | PROVIDERS: ATTEND Emergency Medicine | DX: T87.44 Infection of amputation stump, left lower extremity (principal); E11.622 Type 2 diabetes mellitus with other skin ulcer; L97.122 Non-pressure chronic ulcer of left thigh with fat layer exposed; E11.42 Type 2 diabetes mellitus with diabetic polyneuropathy; I10 Essential (primary) hypertension; E03.9 Hypothyroidism, unspecified; E78.00 Pure hypercholesterolemia, unspecified; E78.5 Hyperlipidemia, unspecified; M19.90 Unspecified osteoarthritis, unspecified site; K21.9 Gastro-esophageal reflux disease without esophagitis; E66.01 Morbid (severe) obesity due to excess calories; F41.9 Anxiety disorder, unspecified; F33.2 Major depressive disorder, recurrent severe without psychotic features; Z68.39 Body mass index [BMI] 39.0-39.9, adult; Z86.718 Personal history of other venous thrombosis and embolism; Z87.01 Personal history of pneumonia (recurrent); Z79.82 Long term (current) use of aspirin; Z79.84 Long term (current) use of oral hypoglycemic drugs; Y83.5 Amputation of limb(s) as the cause of abnormal reaction of the patient, or of later complication, without mention of misadventure at the time of the procedure ==

== ENCOUNTER → 2021-06-11 | Outpatient (CLI) | payer OTHER | LOC: HYPER 10:51 | PROVIDERS: ATTEND Emergency Medicine | DX: T87.44 Infection of amputation stump, left lower extremity (principal); E11.622 Type 2 diabetes mellitus with other skin ulcer; L97.122 Non-pressure chronic ulcer of left thigh with fat layer exposed; E11.42 Type 2 diabetes mellitus with diabetic polyneuropathy; E03.9 Hypothyroidism, unspecified; I10 Essential (primary) hypertension; E78.00 Pure hypercholesterolemia, unspecified; E78.5 Hyperlipidemia, unspecified; K21.9 Gastro-esophageal reflux disease without esophagitis; M19.90 Unspecified osteoarthritis, unspecified site; E66.01 Morbid (severe) obesity due to excess calories; F41.9 Anxiety disorder, unspecified; F33.2 Major depressive disorder, recurrent severe without psychotic features; Z68.39 Body mass index [BMI] 39.0-39.9, adult; Z86.718 Personal history of other venous thrombosis and embolism; Z87.01 Personal history of pneumonia (recurrent); Z79.82 Long term (current) use of aspirin; Z79.84 Long term (current) use of oral hypoglycemic drugs; Y83.5 Amputation of limb(s) as the cause of abnormal reaction of the patient, or of later complication, without mention of misadventure at the time of the procedure ==

== ENCOUNTER → 2021-06-25 | Outpatient (CLI) | payer OTHER | LOC: HYPER 11:10 | PROVIDERS: ATTEND Emergency Medicine | DX: T87.44 Infection of amputation stump, left lower extremity (principal); T87.81 Dehiscence of amputation stump; E11.622 Type 2 diabetes mellitus with other skin ulcer; L97.122 Non-pressure chronic ulcer of left thigh with fat layer exposed; L03.115 Cellulitis of right lower limb; E11.42 Type 2 diabetes mellitus with diabetic polyneuropathy; I10 Essential (primary) hypertension; E03.9 Hypothyroidism, unspecified; E78.00 Pure hypercholesterolemia, unspecified; E78.5 Hyperlipidemia, unspecified; K21.9 Gastro-esophageal reflux disease without esophagitis; M19.90 Unspecified osteoarthritis, unspecified site; E66.01 Morbid (severe) obesity due to excess calories; F32.9 Major depressive disorder, single episode, unspecified; F41.9 Anxiety disorder, unspecified; Z68.39 Body mass index [BMI] 39.0-39.9, adult; Z86.718 Personal history of other venous thrombosis and embolism; Z87.01 Personal history of pneumonia (recurrent); Z79.84 Long term (current) use of oral hypoglycemic drugs; Z79.82 Long term (current) use of aspirin; Z79.899 Other long term (current) drug therapy; Y83.5 Amputation of limb(s) as the cause of abnormal reaction of the patient, or of later complication, without mention of misadventure at the time of the procedure ==

== ENCOUNTER → 2021-07-09 | Outpatient (CLI) | payer OTHER | LOC: HYPER 13:28 | PROVIDERS: ATTEND Emergency Medicine | DX: T81.31XD Disruption of external operation (surgical) wound, not elsewhere classified, subsequent encounter (principal); T81.49XD Infection following a procedure, other surgical site, subsequent encounter; E11.622 Type 2 diabetes mellitus with other skin ulcer; L97.122 Non-pressure chronic ulcer of left thigh with fat layer exposed; L03.115 Cellulitis of right lower limb; E11.42 Type 2 diabetes mellitus with diabetic polyneuropathy; I10 Essential (primary) hypertension; E03.9 Hypothyroidism, unspecified; E78.00 Pure hypercholesterolemia, unspecified; E78.5 Hyperlipidemia, unspecified; K21.9 Gastro-esophageal reflux disease without esophagitis; M19.90 Unspecified osteoarthritis, unspecified site; E66.01 Morbid (severe) obesity due to excess calories; F33.9 Major depressive disorder, recurrent, unspecified; F41.9 Anxiety disorder, unspecified; Z68.39 Body mass index [BMI] 39.0-39.9, adult; Z86.718 Personal history of other venous thrombosis and embolism; Z87.01 Personal history of pneumonia (recurrent); Z79.84 Long term (current) use of oral hypoglycemic drugs; Z79.82 Long term (current) use of aspirin; Z79.899 Other long term (current) drug therapy; Y83.8 Other surgical procedures as the cause of abnormal reaction of the patient, or of later complication, without mention of misadventure at the time of the procedure ==

== ENCOUNTER → 2021-07-23 | Outpatient (CLI) | payer OTHER | LOC: HYPER 10:53 | PROVIDERS: ATTEND Emergency Medicine | DX: T87.81 Dehiscence of amputation stump (principal); T87.44 Infection of amputation stump, left lower extremity; E11.622 Type 2 diabetes mellitus with other skin ulcer; L97.122 Non-pressure chronic ulcer of left thigh with fat layer exposed; E11.21 Type 2 diabetes mellitus with diabetic nephropathy; M79.662 Pain in left lower leg; E03.9 Hypothyroidism, unspecified; E11.42 Type 2 diabetes mellitus with diabetic polyneuropathy; E78.00 Pure hypercholesterolemia, unspecified; I10 Essential (primary) hypertension; E78.5 Hyperlipidemia, unspecified; K21.9 Gastro-esophageal reflux disease without esophagitis; M19.90 Unspecified osteoarthritis, unspecified site; E66.01 Morbid (severe) obesity due to excess calories; F41.9 Anxiety disorder, unspecified; F33.2 Major depressive disorder, recurrent severe without psychotic features; Z86.718 Personal history of other venous thrombosis and embolism; Z87.01 Personal history of pneumonia (recurrent); Z79.84 Long term (current) use of oral hypoglycemic drugs; Z79.82 Long term (current) use of aspirin; Z79.899 Other long term (current) drug therapy; Y83.5 Amputation of limb(s) as the cause of abnormal reaction of the patient, or of later complication, without mention of misadventure at the time of the procedure ==

== ENCOUNTER → 2021-07-28 | Outpatient (CLI) | payer OTHER ==
[~2021-07-28] VITALS: Ht 152.4 cm; Wt 95.9 kg
[~2021-07-28] MED LIST changes: +BUTRANS1 EACH INTRADERM; +FELODIPINE ER10 MG PO
[2021-07-28 11:07] VITALS: BP 147/67
--- NOTE | 2021-07-28 11:18 | NUR ---
Pain Clinic Assessment: 1. History of Osteoarthritis: HIPS BACK KNEES History of Rheumatoid Arthritis: Not Applicable 2. Height: 5 ft. 0 in. 152.4 cm. Weight: 211.4 lb. oz. 95.891 kg. Patient's BMI: 41.3 3. Vital Signs: BP: 147/67 Pulse: 65 Resp: 18 Temp: 02 Sat: 98 ECG Mon: 4. Pain Intensity: 1 5. Fall Risk: Dizziness: N Needs help standing or walking: Y Fallen in the last 3 months: Y Fall risk comments: WHEELCHAIR 6. Patient on Blood Thinner: None 7. History of Hypertension: Y 8. Opioid Therapy greater than 6 weeks: Y Opiate Contract Signed: 9. Risk Assessment Tool Provided: LOW RISK 1 10. Functional Assessment Tool: 62/70 11. Recreational Drug Use: Never Drug Type: Tobacco Use: Never Smoker Tobacco Type: Amount or Packs/day: How Many Years: Alcohol Use: No Frequency: Quant:
== END ==
LOC: PAIN 09:48
PROVIDERS: ATTEND Clinical Nurse Specialist Adult Health
DX: G89.29 Other chronic pain (principal); F41.8 Other specified anxiety disorders; M19.90 Unspecified osteoarthritis, unspecified site; Z89.522 Acquired absence of left knee; Z88.8 Allergy status to other drugs, medicaments and biological substances; Z79.82 Long term (current) use of aspirin; Z79.84 Long term (current) use of oral hypoglycemic drugs; Z79.899 Other long term (current) drug therapy